=== PATIENT | female | born 1955 | race Caucasian/White ===

== ENCOUNTER 2021-01-13 11:23 | Inpatient (IN) | payer MEDICARE, MEDICAID, SELFPAY ==
[2021-01-13] VITALS (15 sets, daily range): BP systolic 108–215; BP diastolic 71–124; PULSE 72–106; RESP 18–30; TEMP 36.1–36.8; O2SAT 91–98; BMI 30.9
--- NOTE | 2021-01-13 11:41 | DI.RAD.S_ITS ---
PROCEDURE: XR CHEST 2V INDICATIONS: shortness of breath TECHNIQUE: 2 views of the chest were acquired. COMPARISON: [facility], , CHEST 2 VIEW, 02/04/2008, 15:27. FINDINGS: Surgical changes and devices: None. Lungs and pleura: Increased vascularity is present. No gross consolidations. Mediastinum: Mediastinal contours are normal. Heart size is enlarged. Bones and chest wall: No suspicious bony abnormalities. Soft tissues appear unremarkable. IMPRESSION: Increased vascularity and cardiomegaly consistent with edema. Dictated by: Kayla Polo M.D. on 01/13/2021 at 12:09 Approved by: Kayla Polo M.D. on 01/13/2021 at 12:10
--- NOTE | 2021-01-13 12:03 | ED.SOB ---
HPI - SOB/Dyspnea General Chief Complaint: Shortness of Breath/Dyspnea Stated Complaint: face puffy/sob x7 days Time Seen by Provider: 01/13/21 12:01 Source: patient Mode of arrival: Ambulatory Limitations: no limitations History of Present Illness HPI Narrative: 65-year-old woman who lives by herself recently moved to [place] has not established a physician with a history of diabetes for which she is on Lantus and lispro presents with swelling and dyspnea. She states that she has not formally been diagnosed with hypertension, hyperlipidemia asthma COPD or congestive heart failure. She notes that she has had a distant history of IV drug use but has not used IV drugs for an extended period of time. She did smoke ?just a little bit of meth? this morning just to be able to get out of bed. She states that she has been getting more dyspneic and generally not feeling well over the last couple of days. She does not describe specific orthopnea. She denies fevers or chills. No vomiting or diarrhea. No specific palpitations or chest pain. Related Data Home Medications Medication Instructions Recorded Confirmed ALBUTEROL SULFATE (Ventolin / 2 puff INH Q4H PRN #0 02/04/08 Proventil) Allergies Allergy/AdvReac Type Severity Reaction Status Date / Time codeine Allergy Verified 01/13/21 11:42 cortisone Allergy Verified 01/13/21 11:42 hydromorphone [From Dilaudid] Allergy Verified 01/13/21 11:42 Review of Systems Review of Systems Narrative: Remainder of review of systems including constitutional, ENT, cardiovascular, respiratory, GI, , musculoskeletal, skin, neurologic and psychiatric systems reviewed and are unremarkable except as noted in HPI. Patient History Medical History IV drug user Methamphetamine use Surgical History Status post surgery (02/09/10) Social History Smoking Status: Current every day smoker Smoking Status: Current every day smoker alcohol intake frequency: holidays/special occasions only Substance Use Type: methamphetamine Exam Narrative Exam Narrative: General: Acutely ill-appearing woman, Able to give a complete and coherent history. HEENT: Moist mucous membranes, normal sclera with reactive pupils, moderate facial edema with increased puffiness around her eyes, face is somewhat flushed Neck: Significant JVD supple Respiratory: Lungs with bibasilar crackles and scattered wheezes in all lung cantu but she continues to have Full and symmetrical air movement and is able speak in full sentences Cardiac: Tachycardic with Regular rate and rhythm no murmurs no bruits Abdomen: Soft, nontender, good bowel tones, no flank pain Skin: Multiple scars from prior abscesses, 2 small wounds on the right forearm that are healing without evidence of cellulitis Neurologic: Globally weak but Grossly neurologically intact with no obvious asymmetries or abnormalities Extremities: No trauma, well perfused, 2+ bilateral lower extremity edema Psych: Cooperative, nonpressured speech Initial Vital Signs Initial Vital Signs: Vital Signs Temperature 98.2 F 01/13/21 11:35 Pulse Rate 106 H 01/13/21 11:35 Respiratory Rate 25 H 01/13/21 11:35 Blood Pressure 215/124 H 01/13/21 11:35 Pulse Oximetry 98 01/13/21 11:35 Course Orders Ordered: ED Orders 01/13/21 11:38 COVID19 - ADMIT ([employer] swab/PCR) Stat 01/13/21 11:41 XR chest 2V Stat EKG-12 Lead Stat Measure peak expiratory flow ONCE RT Consult Eval and Treat Now 01/13/21 12:15 Blood Culture Stat Complete Blood Count AUTO DIFF Stat Comprehensive Metabolic Panel Stat Lactate (Lactic Acid) Stat NT-proBNP (BNP-Adult 18+) Stat Troponin I Stat 01/13/21 13:01 Urinalysis and Microscopic Stat Urine Drug Screen, Rapid Stat Discontinued Medications Albuterol (Albuterol 2.5 Mg/3 Ml Neb (Adult)) 2.5 mg INH NOW ONE Stop: 01/13/21 13:25 Last Admin: 01/13/21 13:42 Dose: 2.5 mg Documented by: Furosemide (Furosemide 40 Mg/4 Ml Vial) 40 mg IV NOW ONE Stop: 01/13/21 12:18 Last Admin: 01/13/21 12:30 Dose: 40 mg Documented by: CATHERINE Hydromorphone HCl (Hydromorphone 1 Mg Inj) 1 mg IV NOW ONE Stop: 01/13/21 13:28 Last Admin: 01/13/21 13:59 Dose: Not Given Documented by: Ipratropium [place] (Ipratropium 0.5 Mg/2.5 Ml Neb) 0.5 mg INH NOW ONE Stop: 01/13/21 13:25 Last Admin: 01/13/21 13:42 Dose: 0.5 mg Documented by: Methylprednisolone (Methylprednisolone 125 Mg/2 Ml Vial) 125 mg IV NOW ONE Stop: 01/13/21 12:18 Last Admin: 01/13/21 12:28 Dose: 125 mg Documented by: CATHERINE Metoprolol Tartrate (Metoprolol Ir 25 Mg Tablet) 50 mg PO NOW ONE Stop: 01/13/21 12:18 Last Admin: 01/13/21 12:27 Dose: 50 mg Documented by: CATHERINE Vital Signs Vital signs: Vital Signs - 8 hr 01/13/21 11:35 01/13/21 11:39 01/13/21 12:00 Temperature 98.2 F Pulse Rate 106 H 98 H 100 H Respiratory Rate 25 H 28 H 30 H Blood Pressure 215/124 H Pulse Oximetry 98 96 96 01/13/21 12:30 01/13/21 12:38 01/13/21 13:20 Temperature Pulse Rate 94 H 91 H 83 Respiratory Rate 25 H 25 H Blood Pressure 185/93 H 108/71 Pulse Oximetry 98 98 97 01/13/21 13:30 01/13/21 13:31 01/13/21 13:43 Temperature Pulse Rate 78 76 72 Respiratory Rate 24 18 Blood Pressure Pulse Oximetry 96 96 95 MDM - SOB/Dyspnea Medical Records Attestation: I reviewed the patient's medical records. Lab Data Attestation: I reviewed the patient's lab results. Result diagrams: 01/13/21 12:15 01/13/21 12:15 Labs: Lab Results 01/13/21 01/13/21 01/13/21 Range/Units 11:38 12:15 12:15 WBC 5.9 (4.5-11.0) X10^3/uL RBC 4.37 (4.0-5.2) X10^6/uL Hgb 13.1 (12.0-16.0) g/dL Hct 39.0 (36-46) % MCV 89.2 (80-100) fL MCH 30.0 (26-34) PG MCHC 33.6 (30-36) % RDW 14.5 (11.6-14.8) % Plt Count 168 (150-400) X10^3/uL Neut % (Auto) 67.8 (50-75) % Lymph % (Auto) 21.5 L (25-40) % [place] % (Auto) 8.5 (3-14) % Eos % (Auto) 1.8 L (2-4) % Baso % (Auto) 0.4 (0-2) % Neut # (Auto) 4000 (4380-6404) /uL Lymph # (Auto) 1300 (0259-4699) /uL [place] # (Auto) 500 (0-900) /uL Eos # (Auto) 100 (0-450) /uL Baso # (Auto) 0 (0-100) /uL Sodium 137 (137-145) mmol/L Potassium 3.7 (3.4-5.1) mmol/L Chloride 104 (98-107) mmol/L Carbon Dioxide 26 (22-32) mmol/L BUN 19 H (7-17) mg/dL Creatinine 0.77 (0.52-1.04) mg/dL Estimated GFR > 60.0 (>60) mL/min BUN/Creatinine Ratio 24.7 H (6-22) Glucose 169 H (80-110) mg/dL Lactate (0.7-2.1) mmol/L Calcium 9.0 (8.4-10.2) mg/dL Total Bilirubin 0.5 (0.2-1.3) mg/dL AST 61 H (14-36) IU/L ALT 54 H (<35) IU/L Alkaline Phosphatase 138 H (38-126) U/L Troponin I (0.01-0.034) ng/mL NT-Pro-B Natriuret Pep (<125) pg/mL Total Protein 7.8 (6.3-8.2) g/dL Albumin 4.0 (3.5-5.0) g/dL Globulin 3.8 (1.7-4.1) g/dL Albumin/Globulin Ratio 1.1 (1.0-2.8) Urine Color Urine Appearance Urine pH (4.5-8.0) Ur Specific [place] (1.000-1.035) Urine Protein (Negative) Urine Glucose (UA) (Negative) g/dL Urine Ketones (NEGATIVE) Urine Occult Blood (Negative) Urine Nitrate (Negative) Urine Bilirubin (NEGATIVE) Urine Urobilinogen (0.2) E.U./dL Ur Leukocyte Esterase (NEGATIVE) Urine RBC (0-5/HPF) Urine WBC (0-5/HPF) Ur Squamous Epith Cells (0-5/HPF) Urine Bacteria (None) Ur Culture Indicated? U Opiates 300ng/mL cut (Negative) Ur Oxycodone Screen (Negative) Urine Methadone Screen (Negative) Ur Barbiturates Screen (Negative) U Tricyclic Antidepress (Negative) Ur Phencyclidine Scrn (Negative) Ur Amphetamines Screen (Negative) U Methamphetamines Scrn (Negative) Ur MDMA Scrn (Ecstasy) (Negative) U Benzodiazepines Scrn (Negative) Urine Cocaine Screen (Negative) U Marijuana (THC) Screen (Negative) SARS-CoV-2 (PCR) Negative (Negative) 01/13/21 01/13/21 01/13/21 Range/Units 12:15 12:15 12:15 WBC (4.5-11.0) X10^3/uL RBC (4.0-5.2) X10^6/uL Hgb (12.0-16.0) g/dL Hct (36-46) % MCV (80-100) fL MCH (26-34) PG MCHC (30-36) % RDW (11.6-14.8) % Plt Count (150-400) X10^3/uL Neut % (Auto) (50-75) % Lymph % (Auto) (25-40) % [place] % (Auto) (3-14) % Eos % (Auto) (2-4) % Baso % (Auto) (0-2) % Neut # (Auto) (5375-4762) /uL Lymph # (Auto) (0162-2158) /uL [place] # (Auto) (0-900) /uL Eos # (Auto) (0-450) /uL Baso # (Auto) (0-100) /uL Sodium (137-145) mmol/L Potassium (3.4-5.1) mmol/L Chloride (98-107) mmol/L Carbon Dioxide (22-32) mmol/L BUN (7-17) mg/dL Creatinine (0.52-1.04) mg/dL Estimated GFR (>60) mL/min BUN/Creatinine Ratio (6-22) Glucose (80-110) mg/dL Lactate 1.3 (0.7-2.1) mmol/L Calcium (8.4-10.2) mg/dL Total Bilirubin (0.2-1.3) mg/dL AST (14-36) IU/L ALT (<35) IU/L Alkaline Phosphatase (38-126) U/L Troponin I 0.035 H (0.01-0.034) ng/mL NT-Pro-B Natriuret Pep 9300 H (<125) pg/mL Total Protein (6.3-8.2) g/dL Albumin (3.5-5.0) g/dL Globulin (1.7-4.1) g/dL Albumin/Globulin Ratio (1.0-2.8) Urine Color Urine Appearance Urine pH (4.5-8.0) Ur Specific [place] (1.000-1.035) Urine Protein (Negative) Urine Glucose (UA) (Negative) g/dL Urine Ketones (NEGATIVE) Urine Occult Blood (Negative) Urine Nitrate (Negative) Urine Bilirubin (NEGATIVE) Urine Urobilinogen (0.2) E.U./dL Ur Leukocyte Esterase (NEGATIVE) Urine RBC (0-5/HPF) Urine WBC (0-5/HPF) Ur Squamous Epith Cells (0-5/HPF) Urine Bacteria (None) Ur Culture Indicated? U Opiates 300ng/mL cut (Negative) Ur Oxycodone Screen (Negative) Urine Methadone Screen (Negative) Ur Barbiturates Screen (Negative) U Tricyclic Antidepress (Negative) Ur Phencyclidine Scrn (Negative) Ur Amphetamines Screen (Negative) U Methamphetamines Scrn (Negative) Ur MDMA Scrn (Ecstasy) (Negative) U Benzodiazepines Scrn (Negative) Urine Cocaine Screen (Negative) U Marijuana (THC) Screen (Negative) SARS-CoV-2 (PCR) (Negative) 01/13/21 01/13/21 Range/Units 13:01 13:01 WBC (4.5-11.0) X10^3/uL RBC (4.0-5.2) X10^6/uL Hgb (12.0-16.0) g/dL Hct (36-46) % MCV (80-100) fL MCH (26-34) PG MCHC (30-36) % RDW (11.6-14.8) % Plt Count (150-400) X10^3/uL Neut % (Auto) (50-75) % Lymph % (Auto) (25-40) % [place] % (Auto) (3-14) % Eos % (Auto) (2-4) % Baso % (Auto) (0-2) % Neut # (Auto) (6035-2580) /uL Lymph # (Auto) (2391-0496) /uL [place] # (Auto) (0-900) /uL Eos # (Auto) (0-450) /uL Baso # (Auto) (0-100) /uL Sodium (137-145) mmol/L Potassium (3.4-5.1) mmol/L Chloride (98-107) mmol/L Carbon Dioxide (22-32) mmol/L BUN (7-17) mg/dL Creatinine (0.52-1.04) mg/dL Estimated GFR (>60) mL/min BUN/Creatinine Ratio (6-22) Glucose (80-110) mg/dL Lactate (0.7-2.1) mmol/L Calcium (8.4-10.2) mg/dL Total Bilirubin (0.2-1.3) mg/dL AST (14-36) IU/L ALT (<35) IU/L Alkaline Phosphatase (38-126) U/L Troponin I (0.01-0.034) ng/mL NT-Pro-B Natriuret Pep (<125) pg/mL Total Protein (6.3-8.2) g/dL Albumin (3.5-5.0) g/dL Globulin (1.7-4.1) g/dL Albumin/Globulin Ratio (1.0-2.8) Urine Color Yellow Urine Appearance Clear Urine pH 6.0 (4.5-8.0) Ur Specific [place] 1.015 (1.000-1.035) Urine Protein 1+ H (Negative) Urine Glucose (UA) Negative (Negative) g/dL Urine Ketones Negative (NEGATIVE) Urine Occult Blood Negative (Negative) Urine Nitrate Negative (Negative) Urine Bilirubin Negative (NEGATIVE) Urine Urobilinogen 0.2 (0.2) E.U./dL Ur Leukocyte Esterase Trace H (NEGATIVE) Urine RBC None seen (0-5/HPF) Urine WBC 1-5/hpf (0-5/HPF) Ur Squamous Epith Cells 5-10 /hpf H (0-5/HPF) Urine Bacteria None seen (None) Ur Culture Indicated? Cult not indicated U Opiates 300ng/mL cut Negative (Negative) Ur Oxycodone Screen Negative (Negative) Urine Methadone Screen Negative (Negative) Ur Barbiturates Screen Negative (Negative) U Tricyclic Antidepress Negative (Negative) Ur Phencyclidine Scrn Negative (Negative) Ur Amphetamines Screen Positive H (Negative) U Methamphetamines Scrn Negative (Negative) Ur MDMA Scrn (Ecstasy) Negative (Negative) U Benzodiazepines Scrn Negative (Negative) Urine Cocaine Screen Negative (Negative) U Marijuana (THC) Screen Negative (Negative) SARS-CoV-2 (PCR) (Negative) Urine Dip Bedside Urine Glucose Negative Bedside Urine Bilirubin - Negative Bedside Urine Ketone - Negative Urine Specific [place] 1.020 Bedside Urine Occult Blood - Negative Bedside Urine pH 6.0 Bedside Urine Protein + 30 Bedside Urine Urobilinogen - Negative Bedside Urine Nitrite - Negative Bedside Urine Leukocytes - Negative Esterase Imaging Data Chest x-ray: Attestation: I personally reviewed and interpreted this imaging study as follows: Radiologist's Impression: FINDINGS: Surgical changes and devices: None. Lungs and pleura: Increased vascularity is present. No gross consolidations. Mediastinum: Mediastinal contours are normal. Heart size is enlarged. Bones and chest wall: No suspicious bony abnormalities. Soft tissues appear unremarkable. IMPRESSION: Increased vascularity and cardiomegaly consistent with edema. Dictated by: Kayla Polo M.D. on 01/13/2021 at 12:09 ECG Data Attestation: I personally reviewed and interpreted this ECG as follows: Pacemaker function: pacemaker associated dysrhythmia MDM Narrative Medical decision making narrative: 65-year-old woman complains of increasing dyspnea. History of IV drug use and methamphetamine use. 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 Chest x-ray confirms the heart failure. There does not appear to be any infectious etiology. She does have scattered wheezes well as bibasilar crackles and significant JVD. Significantly elevated blood pressure on arrival and does note that she has methamphetamine just prior to arrival to be able to get out of bed. She is given IV Lasix, oral metoprolol blood pressure and heart rate do come down nicely. She is given IV Solu-Medrol for wheezes as well as a nebulizer after COVID study returns negative. Wheezing is somewhat improved. Initial pulmonary function test showed 150 cc with poor effort(she should be at least in the 250 range). Troponins are currently pending. 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 Discharge Plan Departure Patient Disposition: Admitted As Inpatient Clinical Impression: Methamphetamine use, Acute exacerbation of chronic obstructive airways disease Congestive heart failure Qualifiers: Heart failure type: unspecified Heart failure chronicity: acute Qualified Code(s): I50.9 - Heart failure, unspecified Admit Date/Time: 01/13/21 14:21 Admit Provider: Michael Diaz
[2021-01-13 12:27] LABS: Add Manual Diff / Slide Review NO; Basophils Absolute Auto 0 /uL (0-100); Basophils Percent Auto 0.4 % (0-2); Eosinophils Absolute Auto 100 /uL (0-450); Eosinophils Percent Auto 1.8 % (2-4); Hemoglobin 13.1 g/dL (12.0-16.0); Lymphocytes Absolute Auto 1300 /uL (1100-4500); Lymphocytes Percent Auto 21.5 % (25-40); Mean Corpuscular HGB Conc 33.6 % (30-36); Mean Corpuscular Volume 89.2 fL (80-100); Monocytes Absolute Auto 500 /uL (0-900); Monocytes Percent Auto 8.5 % (3-14); Neutrophils Absolute Auto 4000 /uL (1500-7000); Neutrophils Percent Auto 67.8 % (50-75); Platelet Count 168 X10^3/uL (150-400); Red Blood Cell Count 4.37 X10^6/uL (4.0-5.2); Red Cell Distribution Width 14.5 % (11.6-14.8); White Blood Cell Count 5.9 X10^3/uL (4.5-11.0)
[2021-01-13] MEDS: METOPROLOL IR 25 MG TABLET 50 MG PO (12:27)
[2021-01-13] MEDS: methylPREDNISolone 125 MG/2 ML VIAL IV (12:28)
[2021-01-13] MEDS: FUROSEMIDE 40 MG/4 ML VIAL IV ×2 (12:30→18:58)
[2021-01-13 12:39] LABS: Lactate (Lactic Acid) 1.3 mmol/L (0.7-2.1)
[2021-01-13 12:40] LABS: Alanine Aminotransferase 54 IU/L (<35); Albumin Globulin Ratio 1.1 (1.0-2.8); Alkaline Phosphatase 138 U/L (38-126); Aspartate Aminotransferase 61 IU/L (14-36); BUN Creatinine Ratio 24.7 (6-22); Bilirubin Total 0.5 mg/dL (0.2-1.3); Blood Urea Nitrogen 19 mg/dL (7-17); Carbon Dioxide 26 mmol/L (22-32); Chloride 104 mmol/L (98-107); Estimated Glomerular Filt Rate > 60.0 mL/min (>60); Globulin 3.8 g/dL (1.7-4.1); Glucose 169 mg/dL (80-110); HEMOLYSIS < 15 (0-50); Potassium 3.7 mmol/L (3.4-5.1); Sodium 137 mmol/L (137-145); Total Protein 7.8 g/dL (6.3-8.2)
[2021-01-13 13:07] LABS: NT-proBNP (BNP-Adult 18+) 9300 pg/mL (<125)
[2021-01-13 13:12] LABS: Bacteria Urine None Seen; RBC Urine None Seen (0-5/HPF)
[2021-01-13 13:26] LABS: Appearance Urine UA CLEAR; Bilirubin Urine UA NEGATIVE (NEGATIVE); Color Urine UA YELLOW; Glucose Urine UA NEGATIVE (Negative); Ketones Urine UA NEGATIVE (NEGATIVE); Leukocyte Esterase Urine UA TRACE (NEGATIVE); Nitrite Urine UA NEGATIVE (Negative); Occult Blood Urine UA NEGATIVE (Negative); Protein Urine UA 1+ (Negative); Specific Gravity Urine UA 1.015 (1.000-1.035); Urobilinogen Urine UA 0.2 E.U./dL (0.2)
[2021-01-13 13:29] LABS: Ur Creatinine Normal (Normal); Ur Specific Gravity Normal (Normal); Urine Tetrahydrocannabinol Negative (Negative); Urine pH Normal (Normal)
[2021-01-13 13:30] LABS: UR Morphine/Opiate cutoff 300 Negative (Negative); Urine Amphetamines Positive (Negative); Urine Barbiturates Negative (Negative); Urine Benzodiazepines Negative (Negative); Urine Cocaine Negative (Negative); Urine MDMA Negative (Negative); Urine Methadone Negative (Negative); Urine Methamphetamines Negative (Negative); Urine Oxycodone Negative (Negative); Urine Phencyclidine Negative (Negative); Urine Tricyclic Antidepressant Negative (Negative)
[2021-01-13 13:37] LABS: Culture Indicated Urine Cult Not Indicated; Squamous Epithelial Cell Urine 5-10 /HPF (0-5/HPF); WBC Urine 1-5/HPF (0-5/HPF)
[2021-01-13] MEDS: IPRATROPIUM 0.5 MG/2.5 ML NEB INH (13:42)
[2021-01-13] MEDS: ALBUTEROL 2.5 MG/3 ML NEB (ADULT) INH (13:42)
--- NOTE | 2021-01-13 13:50 | RT ---
pt zari Neb Tx well, no distress noted and on room air. Peak Flow 150/ 180 Not excellent effort noted.
[2021-01-13 14:04] LABS: Troponin I 0.035 ng/mL (0.01-0.034)
[2021-01-13 14:24] LABS: COVID19 - ADMIT (NP swab/PCR) Negative (Negative)
--- NOTE | 2021-01-13 16:14 | P.HP_ITS ---
History of Present Illness History of Present Illness Date Patient Seen: 01/13/21 Time Patient Seen: 16:14 Chief complaint: face puffy/sob x7 days Narrative: Chrissy Nieves is a 65 year old female with a past medical history of diabetes, COPD/asthma, active smoker and active methamphetamine user who presented with worsening shortness of breath over the past month to the emergency room. Patient states that over the past month she has had increasing shortness of breath. Initially this started with dyspnea on exertion but has now progressed to dyspnea at rest rapidly over the past week, she is only able to take a a few steps before getting short of breath. She denies any chest pain, palpitations, fevers, chills. She denies any diaphoresis, nausea, vomi ting, abdominal pain, left arm or jaw pain. She does have a cough that is worse at night but denies overt orthopnea or PND. She does complain of increasing facial swelling. She denies any lower extremity edema that she has noticed and she denies any early satiety or weight gain. She has been taking her home albuterol which occasionally helps with her symptoms. In the emergency room, the patient was markedly hypertensive to 215/124, which is improved to 157/96 after she was given oral metoprolol. She was not hypoxic on room air but was mildly tachypneic in the low 30s. She was initially t achycardic but her heart rate has improved with oral metoprolol. She was also given methylprednisone in the emergency room along with albuterol and 40 mg of furosemide. EKG shows sinus rhythm with occasional PVC. Chest x-ray shows cardiomegaly and vascular congestion. Initial laboratory evaluation revealed an unremarkable CBC, chemistries revealed an elevated glucose at 169, mild AST and ALT elevations at 61 and 54 respectively. Troponin was borderline elevated at 0.031 increased slightly to 0.035. ProBNP was elevated at 9300. Urinalysis was slightly contaminated but no evidence of active infection. Urine drug screen was positive for methamphetamines. COVID-19 testing was negative. Patient was admitted for further management of presumed acute heart failure secondary to methamphetamine use. Patient History Medical History COPD (chronic obstructive pulmonary disease) Diabetes IV drug user Methamphetamine use Surgical History Status post surgery (02/09/10) Family & Social History Family History Mother Diabetes mellitus Father Congestive heart failure Safety & Behavioral: Feels Safe in Current Yes Environment Been Physically Hurt or No Threatened By a Person Tobacco & Substance use: Smoking Status Current every day smoker alcohol intake frequency holiday/special occasion Substance Use Type methamphetamine Meds Home Medications and Allergies Home Medications Medication Instructions Recorded Confirmed Type insulin glargine [Lantus U-100 30 unit SUBCUT QPM 01/13/21 01/13/21 History Insulin] insulin lispro 8 unit SUBCUT TID 01/13/21 01/13/21 History Allergies Allergy/AdvReac Type Severity Reaction Status Date / Time codeine Allergy Verified 01/13/21 14:34 cortisone Allergy Verified 01/13/21 14:34 hydromorphone [From Dilaudid] Allergy Verified 01/13/21 14:34 Review of Systems Review of Systems Narrative: All other systems reviewed with the patient and are negative unless otherwise stated. Exam Vital Signs (past 8 hours): - 01/13/21 11:35 01/13/21 11:39 01/13/21 12:00 Temperature 98.2 F Pulse Rate 106 H 98 H 100 H Respiratory Rate 25 H 28 H 30 H Blood Pressure 215/124 H Pulse Oximetry 98 96 96 01/13/21 12:30 01/13/21 12:38 01/13/21 13:20 Temperature Pulse Rate 94 H 91 H 83 Respiratory Rate 25 H 25 H Blood Pressure 185/93 H 108/71 Pulse Oximetry 98 98 97 01/13/21 13:30 01/13/21 13:31 01/13/21 13:43 Temperature Pulse Rate 78 76 72 Respiratory Rate 24 18 Blood Pressure Pulse Oximetry 96 96 95 01/13/21 14:00 01/13/21 14:30 01/13/21 15:00 Temperature Pulse Rate 72 73 74 Respiratory Rate 26 H 30 H 29 H Blood Pressure 182/89 H 168/123 H 157/96 H Pulse Oximetry 94 97 94 Oxygen Delivery Method Room Air Narrative Exam Narrative: GENERAL APPEARANCE: Well developed, well nourished, in no acute distress but mildly anxious and fidgety. SKIN: Inspection of the skin reveals scattered ecchymosis and scarring bilaterally in her extremities. HEENT: Normocephalic atraumatic, extraocular muscles are intact, oropharynx is clear and mucous membranes are moist, neck is supple without adenopathy NECK: Supple and symmetric. There was no thyroid enlargement, and no tenderness, or masses were felt. CHEST: Normal AP diameter and normal contour without any kyphoscoliosis. LUNGS: Auscultation of the lungs revealed diminshes breath sounds bilateral lung bases, but no wheezing or obvious crackles. CARDIOVASCULAR: There was a regular rate and rhythm without any murmurs, gallops, rubs. Peripheral pulses were 2+ and symmetric. ABDOMEN: Soft and nontender with normal bowel sounds. No ascites was noted. MUSCULOSKELETAL: There was no tenderness or effusions noted. Muscle strength and tone were normal. EXTREMITIES: No cyanosis, clubbing. Trace pedal edema bilaterally. NEUROLOGIC: Alert and oriented x 3. Normal affect although slightly anxious as noted above. Strength is +5/5 in the Upper Extremities and Lower Extremities Bilaterally. Sensation to touch was normal. Objective ECG Impression: Sinus rhythm with occasional premature ventricular complexes no prior tracings Imaging Chest x-ray: Radiologist's impression: PROCEDURE: XR CHEST 2V INDICATIONS: shortness of breath TECHNIQUE: 2 views of the chest were acquired. COMPARISON: [facility], , CHEST 2 VIEW, 02/04/2008, 15:27. FINDINGS: Surgical changes and devices: None. Lungs and pleura: Increased vascularity is present. No gross consolidations. Mediastinum: Mediastinal contours are normal. Heart size is enlarged. Bones and chest wall: No suspicious bony abnormalities. Soft tissues appear unremarkable. IMPRESSION: Increased vascularity and cardiomegaly consistent with edema. Labs Result Diagrams: 01/13/21 12:15 01/13/21 12:15 Labs: Laboratory Results - last 24 hr 01/13/21 01/13/21 01/13/21 11:38 12:15 12:15 WBC 5.9 RBC 4.37 Hgb 13.1 Hct 39.0 MCV 89.2 MCH 30.0 MCHC 33.6 RDW 14.5 Plt Count 168 Neut % (Auto) 67.8 Lymph % (Auto) 21.5 L [place] % (Auto) 8.5 Eos % (Auto) 1.8 L Baso % (Auto) 0.4 Neut # (Auto) 4000 Lymph # (Auto) 1300 [place] # (Auto) 500 Eos # (Auto) 100 Baso # (Auto) 0 Sodium 137 Potassium 3.7 Chloride 104 Carbon Dioxide 26 BUN 19 H Creatinine 0.77 Estimated GFR > 60.0 BUN/Creatinine Ratio 24.7 H Glucose 169 H Lactate Calcium 9.0 Total Bilirubin 0.5 AST 61 H ALT 54 H Alkaline Phosphatase 138 H Troponin I NT-Pro-B Natriuret Pep Total Protein 7.8 Albumin 4.0 Globulin 3.8 Albumin/Globulin Ratio 1.1 Urine Color Urine Appearance Urine pH Ur Specific [place] Urine Protein Urine Glucose (UA) Urine Ketones Urine Occult Blood Urine Nitrate Urine Bilirubin Urine Urobilinogen Ur Leukocyte Esterase Urine RBC Urine WBC Ur Squamous Epith Cells Urine Bacteria Ur Culture Indicated? U Opiates 300ng/mL cut Ur Oxycodone Screen Urine Methadone Screen Ur Barbiturates Screen U Tricyclic Antidepress Ur Phencyclidine Scrn Ur Amphetamines Screen U Methamphetamines Scrn Ur MDMA Scrn (Ecstasy) U Benzodiazepines Scrn Urine Cocaine Screen U Marijuana (THC) Screen SARS-CoV-2 (PCR) Negative 01/13/21 01/13/21 01/13/21 12:15 12:15 12:15 WBC RBC Hgb Hct MCV MCH MCHC RDW Plt Count Neut % (Auto) Lymph % (Auto) [place] % (Auto) Eos % (Auto) Baso % (Auto) Neut # (Auto) Lymph # (Auto) [place] # (Auto) Eos # (Auto) Baso # (Auto) Sodium Potassium Chloride Carbon Dioxide BUN Creatinine Estimated GFR BUN/Creatinine Ratio Glucose Lactate 1.3 Calcium Total Bilirubin AST ALT Alkaline Phosphatase Troponin I 0.035 H NT-Pro-B Natriuret Pep 9300 H Total Protein Albumin Globulin Albumin/Globulin Ratio Urine Color Urine Appearance Urine pH Ur Specific [place] Urine Protein Urine Glucose (UA) Urine Ketones Urine Occult Blood Urine Nitrate Urine Bilirubin Urine Urobilinogen Ur Leukocyte Esterase Urine RBC Urine WBC Ur Squamous Epith Cells Urine Bacteria Ur Culture Indicated? U Opiates 300ng/mL cut Ur Oxycodone Screen Urine Methadone Screen Ur Barbiturates Screen U Tricyclic Antidepress Ur Phencyclidine Scrn Ur Amphetamines Screen U Methamphetamines Scrn Ur MDMA Scrn (Ecstasy) U Benzodiazepines Scrn Urine Cocaine Screen U Marijuana (THC) Screen SARS-CoV-2 (PCR) 01/13/21 01/13/21 13:01 13:01 WBC RBC Hgb Hct MCV MCH MCHC RDW Plt Count Neut % (Auto) Lymph % (Auto) [place] % (Auto) Eos % (Auto) Baso % (Auto) Neut # (Auto) Lymph # (Auto) [place] # (Auto) Eos # (Auto) Baso # (Auto) Sodium Potassium Chloride Carbon Dioxide BUN Creatinine Estimated GFR BUN/Creatinine Ratio Glucose Lactate Calcium Total Bilirubin AST ALT Alkaline Phosphatase Troponin I NT-Pro-B Natriuret Pep Total Protein Albumin Globulin Albumin/Globulin Ratio Urine Color Yellow Urine Appearance Clear Urine pH 6.0 Ur Specific [place] 1.015 Urine Protein 1+ H Urine Glucose (UA) Negative Urine Ketones Negative Urine Occult Blood Negative Urine Nitrate Negative Urine Bilirubin Negative Urine Urobilinogen 0.2 Ur Leukocyte Esterase Trace H Urine RBC None seen Urine WBC 1-5/hpf Ur Squamous Epith Cells 5-10 /hpf H Urine Bacteria None seen Ur Culture Indicated? Cult not indicated U Opiates 300ng/mL cut Negative Ur Oxycodone Screen Negative Urine Methadone Screen Negative Ur Barbiturates Screen Negative U Tricyclic Antidepress Negative Ur Phencyclidine Scrn Negative Ur Amphetamines Screen Positive H U Methamphetamines Scrn Negative Ur MDMA Scrn (Ecstasy) Negative U Benzodiazepines Scrn Negative Urine Cocaine Screen Negative U Marijuana (THC) Screen Negative SARS-CoV-2 (PCR) Assessment & Plan Assessment & Plan narrative: Chrissy Nieves is a 65 year old female with a past medical history of diabetes, COPD/asthma, active smoker and active methamphetamine user who presented with worsening shortness of breath over the p ast month to the emergency room. Admitted for further management of presumed acute heart failure secondary to methamphetamine use. 1. Presumed acute heart failure, unknown EF, present on admission - patient with no known prior heart history, presented with 1 month of progressive dyspnea on exertion. - CXR with cardiomegaly and vascular congestion, pro-bnp 9300. Symptoms improved with 40 mg of IV lasix in the ER, will continue 40 mg IV BID. 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 Patient was counseled on cessation. She was also counseled on tobacco cessation as well. -suspect her elevated troponins in the setting of volume overload, will continue to follow until downtrending. She denies chest pain and EKG shows some nonspecific T-wave inversions but no acute ST segment abnormalities. -have ordered echocardiogram. Patient was given oral metoprolol for hypertension the emergency room with success. For her HTN will continue lasix therapy and start lisinopril tomorrow AM unless hypertensive overnight. Will try and hold off on beta candelario therapy until more adequately diuresed. 2. polysubstance abuse, with methamphetamine use and tobacco use. 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 She is accepting of this and interested in quitting. 3. Diabetes, type 2, control unknown, present on admission - continue patients home lantus 30, humalog 8 U TID AC, and sliding scale. Will check an A1c. 4. COPD/asthma - patient was given steroids and albuterol in the ER. Suspect dyspnea more likely related to heart failure at this time. Do not believe this to be an acute exacerbation. Will hold further steroids at this time. Continue albuterol prn, RT eval and treat ordered. 5. Elevated troponin, acute, present on admission - suspect elevated in the setting of fluid overload and heart failure. EKG with no evidence of acute ischemia and no chest pain currently. Will continue to follow until downtrending. Code: Full, surrogate decision maker she states is her son (not sure and this has not been formally discussed, but states children would be the only available family). DVT: HSQ BID Dispo: admitted under inpatient status as her stay is expected to exceed two midnights. Quality MIPS - Admit I confirm the patient?s Advance Care Plan is present, Code status is documented, Surrogate decision maker is in patient?s record [If Yes, STOP here]: Yes
--- NOTE | 2021-01-13 16:42 | DI.ECHO.S_ITS ---
[facility] +---------+ : : [address] [place] [address] : : : : [phone] : : : : Phone: [phone]+ Echocardiogram Report + + :Name: VINAYAK HERNANDEZ Study Date: 01/14/2021 Height: 63 in : :[facility] ReadingLocation: Weight: 180 lb : : Gender: Female BSA: 1.8 m2 : :: 1955 Age: 65 yrs BP: 168/123 mmHg: :Reason For Study: SHORTNESS OF BREATH, CARDIOMYOPATHY : :Ordering Physician: NICOLE, : :CASANDRA TOBIAS Performed By: Megan Lopez : :Referring: CASANDRA RIVERA : + + Interpretation Summary The left ventricle is normal in size. The ejection fraction is estimated to be 45-50%. There is a hypokinesis of basal to mid inferior wall as well as basal to mid inferior septum. Diastolic parameters suggest a pseudonormalization pattern, consistent with probable elevated filling pressures. The right ventricle is grossly normal size. Right ventricular systolic function is at the lower limits of normal. Both atria are severely dilated. There is moderate tricuspid regurgitation. The right ventricular systolic pressure is estimated to be at least 51 mmHg based on an estimated right atrial pressure of 15 mm Hg. There is moderate pulmonary hypertension. BP: 168/123 mmHg Procedure: A two-dimensional transthoracic echocardiogram with color flow and Doppler was performed. The study quality was technically adequate. There is no prior echocardiogram noted for this patient. The patient was in sinus rhythm with heart rates between 85-90 bpm during the exam. Left Ventricle: The left ventricle is normal in size. There is mild concentric left ventricular hypertrophy. There is no thrombus. The ejection fraction is estimated to be 45-50%. There is a hypokinesis of basal to mid inferior wall as well as basal to mid inferior septum. Diastolic parameters suggest a pseudonormalization pattern, consistent with probable elevated filling pressures. Right Ventricle: The right ventricle is grossly normal size. Right ventricular systolic function is at the lower limits of normal. Atria: The left atrium is severely dilated. Both atria are severely dilated. The right atrium is severely dilated. There is no Doppler evidence for an interatrial shunt. Mitral Valve: The mitral valve leaflets appear borderline thickened, but open well. There is mild mitral annular calcification. There is mild mitral regurgitation. Aortic Valve: The aortic valve is trileaflet. The aortic valve opens well. There is no aortic valve stenosis. No aortic regurgitation is present. Tricuspid Valve: The tricuspid valve is not well visualized, but is grossly normal. There is moderate tricuspid regurgitation. The right ventricular systolic pressure is estimated to be at least 51 mmHg based on an estimated right atrial pressure of 15 mm Hg. There is moderate pulmonary hypertension. Pulmonic Valve: The pulmonic valve is not well visualized. There is no pulmonic valvular regurgitation. Great Vessels: The aortic root is normal size. The dimensions of the ascending aorta are normal. The IVC is dilated (diameter is greater than 2.1 cm) and it collapses less than 50% with a sniff. This suggests a high right atrial pressure of 15 mm Hg. Pericardium/ Pleura There is no pericardial effusion. There is no pleural effusion. MMode/2D Measurements & Calculations LVIDd: 5.1 cm LVOT diam: 2.0 cm LVIDs: 3.7 cm Ao root diam: 3.1 cm FS: 28.0 % asc Aorta Diam: 3.3 cm EPSS: 1.5 cm IVSd: 1.1 cm LVPWd: 1.1 cm LV [place]. diameter/BSA (cm/m^2): 2.7 LV sys. diameter/BSA (cm/m^2): 2.0 LA A2 area: 26.7 cm2 RA long axis: 5.8 cm LA A4 area: 27.1 cm2 RA area: 25.5 cm2 LA length (vol): 6.4 cm RA vol: 94.9 ml LA vol: 96.6 ml RA : 51.3 ml/m2 LA vol index: 52.3 ml/m2 IVC diam: 2.8 cm RVD1 (basal): 3.2 cm TAPSE: 1.8 cm Doppler Measurements & Calculations Ao V2 max: 124.7 cm/sec LVOT Max Jeremy: 76.7 cm/sec Ao V2 mean: 87.1 cm/sec LV V1 max P.4 mmHg Ao max P.2 mmHg LV V1 VTI: 15.1 cm Ao mean P.4 mmHg SERA(I,D): 2.3 cm2 Ao V2 VTI: 21.2 cm SERA(V,D): 2.0 cm2 sev ratio: 0.71 SERA indexed to BSA (cm^2/m^2): 1.2 MV E max jeremy: 103.7 cm/sec TR max jeremy: 300.1 cm/sec MV A max jeremy: 86.5 cm/sec TR max P.0 mmHg MV E/A: 1.2 PA V2 max: 94.4 cm/sec Med Peak E' Jeremy: 3.9 cm/sec PA V2 mean: 70.1 cm/sec E/E' med: 26.4 PA mean P.2 mmHg Lat Peak E' Jeremy: 6.2 cm/sec PA pr(Accel): 36.2 mmHg E/E' lat: 16.8 E/e' average: 21.6 MV dec time: 0.15 sec SV(LVOT): 48.4 ml Reading Physician:11:57 AM
[2021-01-13] MEDS: INSULIN ASPART 100 UNIT/ML INSULN PEN SUBCUT ×2 (17:29→21:16)
[2021-01-13] MEDS: INSULIN ASPART 100 UNIT/ML INSULN PEN 8 UNIT SUBCUT (17:29)
[2021-01-13] MEDS: BENZOCAINE/MENTHOL 1 LOZ PKT 1 EACH PO (20:26)
[2021-01-13] MEDS: HEPARIN 5,000 UNIT/ML VIAL 5000 UNIT SUBCUT (21:14)
[2021-01-13] MEDS: INSULIN GLARGINE 100 UNIT/ML 3ML PEN 30 UNIT SUBCUT (21:17)
--- NOTE | 2021-01-13 23:45 | PC.NURSE ---
summary- Pt arrived to room 216 from ED via bed. A/O x4, SOB with exertion, pt reports tiny bit SOB at rest, 94% RA, LS clear post coughing, cough intermittent and productive. Denies chest pain, nausea, or dizziness. Pt Hx IV meth user, Smokes meth currently and used this morning 01/13/21. BP 148/113 provider aware. Tele placed 1600 [id number]. Rt wrist SL Lasix admin 1900 with 25mL ns flush. Lt/Rt FA's scared from abscesses of IV drug use, RFA with 2 1cm healing scabs, diagonal scar to ABD from cholecystectomy. BG @ 8115-296 - 8units scheduled and 3 units coverage, 11 total units admin, 1999- , 5units insulin with 30 units scheduled lantus admin. Provided pt with snacks and fluids, call light in reach.
[2021-01-14] VITALS (15 sets, daily range): BP systolic 134–162; BP diastolic 71–100; PULSE 79–98; RESP 16–22; TEMP 36.3–37.4; O2SAT 92–98
[2021-01-14] MEDS: BENZOCAINE/MENTHOL 1 LOZ PKT 1 EACH PO (02:32)
[2021-01-14] MEDS: FUROSEMIDE 40 MG/4 ML VIAL IV ×2 (06:17→17:19)
[2021-01-14 06:32] LABS: Alanine Aminotransferase 53 IU/L (<35); Albumin Globulin Ratio 1.1 (1.0-2.8); Alkaline Phosphatase 149 U/L (38-126); Aspartate Aminotransferase 57 IU/L (14-36); BUN Creatinine Ratio 34.9 (6-22); Bilirubin Total 0.4 mg/dL (0.2-1.3); Bilirubin Unconjugated 0.4 mg/dL (0.0-1.1); Blood Urea Nitrogen 29 mg/dL (7-17); Carbon Dioxide 26 mmol/L (22-32); Chloride 101 mmol/L (98-107); Cholesterol 159 mg/dL (140-199); Estimated Glomerular Filt Rate > 60.0 mL/min (>60); Globulin 3.8 g/dL (1.7-4.1); Glucose 179 mg/dL (80-110); HDL Cholesterol 59 mg/dL (40-60); HEMOLYSIS 34 (0-50); LDL Cholesterol Calculated 70 mg/dL (<100); Magnesium 1.6 mg/dL (1.6-2.3); Potassium 3.8 mmol/L (3.4-5.1); Sodium 137 mmol/L (137-145); Total Protein 7.8 g/dL (6.3-8.2); Triglycerides 149 mg/dL (35-150)
[2021-01-14 06:37] LABS: Add Manual Diff / Slide Review NO; Basophils Absolute Auto 100 /uL (0-100); Basophils Percent Auto 1.1 % (0-2); Eosinophils Absolute Auto 0 /uL (0-450); Eosinophils Percent Auto 0.1 % (2-4); Hematocrit 38.4 % (36-46); Hemoglobin 12.8 g/dL (12.0-16.0); Lymphocytes Absolute Auto 1400 /uL (1100-4500); Lymphocytes Percent Auto 12.5 % (25-40); Mean Corpuscular HGB Conc 33.4 % (30-36); Mean Corpuscular Hemoglobin 29.8 PG (26-34); Mean Corpuscular Volume 89.2 fL (80-100); Monocytes Absolute Auto 800 /uL (0-900); Monocytes Percent Auto 6.9 % (3-14); Neutrophils Absolute Auto 8900 /uL (1500-7000); Neutrophils Percent Auto 79.4 % (50-75); Platelet Count 177 X10^3/uL (150-400); Red Blood Cell Count 4.31 X10^6/uL (4.0-5.2); Red Cell Distribution Width 14.4 % (11.6-14.8); White Blood Cell Count 11.2 X10^3/uL (4.5-11.0)
[2021-01-14 06:38] LABS: Hemoglobin A1C% w Est Avg Glu 7.1 % (4.0-6.0)
[2021-01-14 07:01] LABS: TSH w/ Reflex to FT4 1.19 uIU/mL (0.47-4.68)
[2021-01-14] MEDS: ALBUTEROL 2.5 MG/3 ML NEB (ADULT) INH ×2 (07:58→16:14)
[2021-01-14] MEDS: HEPARIN 5,000 UNIT/ML VIAL 5000 UNIT SUBCUT ×2 (08:21→21:51)
[2021-01-14] MEDS: lisinopriL 10 MG TABLET PO (08:21)
[2021-01-14] MEDS: INSULIN ASPART 100 UNIT/ML INSULN PEN SUBCUT (08:22)
[2021-01-14] MEDS: INSULIN ASPART 100 UNIT/ML INSULN PEN 8 UNIT SUBCUT ×3 (08:22→17:19)
[2021-01-14] MEDS: SODIUM CHLORIDE 0.9% FLUSH 10 ML IV ×2 (08:29→21:51)
--- NOTE | 2021-01-14 12:51 | CM.SWNOTE ---
HUNTER TRAPPER Note This HUNTER TRAPPER requested for consult to assess needs and complete CD assessment for this 65 yo female, daily meth user, presents to the ED complaining of a puffy face and SOBx7 days. PMH includes diabetes, COPD/asthma, active smoker and active methamphetamine user PCP: None listed Payer: [facility] According to Dr Diaz, patient presumed to have acute heart failure unknown EF (echo pending) likely secondary to meth use ( no prior heart hx), patient will likely be here an additional day or two. Met w/patient to introduce role. Patient is not feeling well, appears to be in a w/d process, this visit kept relatively brief. Patient currently living in a 5th wheel on a friend's property, has a friend living in a trailer right in front of me. 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 Patient has 7 children, one dtr, Blanca, lives locally and patient finds supportive. Other children are all spread out Patient admits to daily meth use about 5 to 10 daily. Patient started using meth when she was 38 yo when her brother was making it. Patient's spouse also used regularly. Patient sounds regretful she ever started using. Patient has been using on and off since she started and states she was sober a year ago maybe Patient became tearful talking about her medical condition, as well as talking about her children. Patient states I just got them back in my life and states if they find out she is currently using they will drop me so fast and I will be completely alone. Patient admits to having seldom-no feelings of sofie in her life and feeling very isolated and alone. Patient has some distant h/o drug treatment, will not elaborate for this HUNTER TRAPPER today. Patient shaking and lunch has arrived. Patient states she wants to be clean, she is motivated to keep her relationships w/her 7 children and 19 grandchildren. This HUNTER TRAPPER suggested returning tomorrow to review ideas for treatment, counseling, recovery ? and patient agreeable to this. Of note- patient does not drive so relies on public transportation for errands and appts. Updated RN Jem Finney, HUNTER TRAPPER
--- NOTE | 2021-01-14 14:18 | PT.IIE ---
Surgical History (Last Reviewed 01/13/21 @ 16:40 by Michael Diaz DO) Status post surgery (02/09/10) Medical History (Last Reviewed 01/13/21 @ 16:40 by Michael Diaz DO) COPD (chronic obstructive pulmonary disease) Diabetes IV drug user Methamphetamine use Physical Therapy Inpatient Evaluation/Re-Eval M1 PT/OT-IP Prior Functional Status Start: 01/14/21 15:49 Freq: NEEDED Status: Active Protocol: Document 01/14/21 14:18 AB (Rec: 01/14/21 16:05 AB [id number]) Medical Review Prior Functional Status Medical History Reviewed Yes Communication able to make needs known Mobility and Gait pt stated that she is independent with all mobilities and ambulation without AD Social History Household Members none Living Arrangements RV Number of Floors (Floors) Two Floors Number of Stairs To Enter/Railing? lives on a 5th wheel has 2 steps with L rail to enter; 1 step to the bathroom and 3 steps to the bed Home Environment Standard Height Toilet,Tub/ Shower Additional Social History Comment pt stated that she uses her friends toilet/ shower since her does not have any water connection M2 PT-IP Current Condition Start: 01/14/21 15:49 Freq: NEEDED Status: Active Protocol: Document 01/14/21 14:18 AB (Rec: 01/14/21 16:05 AB [id number]) Physical Therapy Current Condition Current Condition Evaluation Date 01/14/21 Treatment Diagnosis CHF; difficulty in walking Onset Date 01/13/21 M3 PT-IP Subjective Start: 01/14/21 15:49 Freq: NEEDED Status: Active Protocol: Document 01/14/21 14:18 AB (Rec: 01/14/21 16:05 AB [id number]) Subjective Physical Therapy Visit Type Type Initial Evaluation Visit Start Time 14:18 Visit Stop Time 14:39 Total Visit Minutes 21 Number of FATS AND OILS LOADER Visits 0 Physical Therapy Visit Comments Patient Comments agreeable to do PT Therapy Pain Assessment Pain Present Pain Present Denied Pain M4 PT-IP Mobility and Gait Start: 01/14/21 15:49 Freq: NEEDED Status: Active Protocol: Document 01/14/21 14:18 AB (Rec: 01/14/21 16:05 AB [id number]) PT-Bed Mobility Assessment Supine to Sit Supine to Sit Standby Assistance Sit to Supine Sit to Supine Standby Assistance PT-Transfer Assessment Sit to and From Stand Sit to and from Stand Standby Assistance Equipment Transfer Assistive Device None,Gait Belt Transfers Transfer Destination Chair Transfer Technique ambulated without AD Transfer Ability Level of Assist Standby Assistance Comments Mobility Comments pt can be impulsive. completed supine to sit SBA. pt was able to sit on EOB SBA. pt with resting tremors: trunk, and LE. O2 sat 96%. no c/o SOB. ambulated in room without AD 30 ft SBA. presents with unsteady gait but without LOB. agreed to ambulate in the hallway and completed 75ft without AD SBA. O2 sat 94%, HR 103. pt sat on chair to rest. O2 sat increased to 99% HR 96bpm. pt completed up/down step stool SBA and cues for safety. pt agreed to sit up on chair . positioned on chair. call light and table placed within reach. Gait Assessment Gait Gait Assistance Required: Standby Assistance Distance (Feet) 75 Able to Maintain Weight Bearing Status Yes During Gait Assistive Devices Assistive Device None,Gait Belt Orthotic/Prosthetic Devices or Brace: No Gait Deviations General Gait Pattern Antalgic,Decreased Feet Clearance Factors Limiting Gait Function Factors Limiting Gait Function Decreased Activity Tolerance, Decreased Strength,Poor Safety Awareness Comments Gait Comments pls refer to mobility section for details Stair Climbing Assessment Evaluation Level of Assist On Stairs Standby Assistance Devices Stair Climbing Assistive Devices None Technique/Endurance Stair Climbing Direction Ascend and Descend Stair Climbing Technique Step to Step Number of Steps Climbed 1 Query Text: Stair Climbing Set # Repetitions (reps) 2 PT-Balance Assessment Sitting Balance and Reactions Static Sitting Balance Ability Good Dynamic Sitting Balance Ability Good Standing Balance and Reactions Static Standing Balance Ability Good Dynamic Standing Balance Ability Fair Device Used without AD M5 PT-IP Objective Assessments Start: 01/14/21 15:49 Freq: NEEDED Status: Active Protocol: Document 01/14/21 14:18 AB (Rec: 01/14/21 16:05 AB [id number]) Orientation Orientation/Cognition Level of Alertness Alert Orientation Name,Place,Situation Safety Awareness Decreased Safety Awareness Gross Range of Motion Lower Extremity ROM Assessment Within Functional Limits Strength Lower Extremity Strength Assessment Within Functional Limits Coordination Assessment Gross Coordination Gross Coordination WNL Sensation Assessment Sensation Gross Sensation WNL Muscle Tone Muscle Tone WNL Yes M6 PT-IP Treatment Start: 01/14/21 15:49 Freq: NEEDED Status: Active Protocol: Document 01/14/21 14:18 AB (Rec: 01/14/21 16:05 AB [id number]) Physical Therapy Treatment Education Education Provided Safety M7 PT-IP Assessment and Plan Start: 01/14/21 15:49 Freq: NEEDED Status: Active Protocol: Document 01/14/21 14:18 AB (Rec: 01/14/21 16:05 AB [id number]) PT Summary Assessment and Plan Potential Rehabilitation Potential Good Status of Condition at Evaluation Stable Summary Impairments Strength,Balance,Bed Mobility, Transfers,Gait,Activity Tolerance Assessment Summary pt requiring SBA with mobility but presents with decrerase activity tolerance affecting mobility independence. pt lives alone but stated that her friend will be able to assist if needed. will continue to assess progress. plan is for pt to go home. Goals Bed Mobility Goal Independent Transfer Goal Independent Gait Goal Independent Gait Distance 200 Other Goals up/down 3 steps without rails mod I Days to Meet Goals 5 Frequency of Treatment Frequency Of Treatment Once a Day Treatment Plan Physical Therapy Treatment Plan Bed Mobility Training,Transfer Training,Gait Training, Therapeutic Exercise,Balance Retraining,Discharge Planning, Neuromuscular Re-ed, Coordination Retraining Recommendations To Nursing Amount of Assist Needed Standby Assistance Discharge Recommendations PT Discharge Recommendations Home with Assistance Transportation Needs at Discharge Private Vehicle
--- NOTE | 2021-01-14 18:47 | PM.PN.1 ---
Subjective Subjective Date Patient Seen: 01/14/21 Time Patient Seen: 18:47 Interval history: Chrissy Nieves is a 65 year old female with a past medical history of diabetes, COPD/asthma, active smoker and active methamphetamine user who presented with worsening shortness of breath over the past month to the emergency room. Admitted for further management of presumed acute heart failure secondary to methamphetamine use. Echocardiogram returned with borderline EF of 45-50%. Patient symptoms are improving today with continued lasix therapy. Denies fever, chills, nausea, vomiting, abdominal pain. Exam Vital Signs (past 8 hours): - 01/14/21 12:00 01/14/21 14:31 01/14/21 15:40 Temperature 99.4 F 97.5 F L Pulse Rate 89 94 H Respiratory Rate 20 18 Blood Pressure 134/87 161/78 H Pulse Oximetry 96 96 01/14/21 15:49 01/14/21 16:14 Temperature Pulse Rate 79 Respiratory Rate 18 Blood Pressure Pulse Oximetry 96 96 Oxygen Delivery Method Room Air Oxygen Flow Rate 0 Narrative Exam Narrative: GENERAL APPEARANCE: Well developed, well nourished, in no acute distress but mildly anxious and fidgety. SKIN: Inspection of the skin reveals scattered ecchymosis and scarring bilaterally in her extremities. HEENT: Normocephalic atraumatic, extraocular muscles are intact, oropharynx is clear and mucous membranes are moist, neck is supple without adenopathy NECK: Supple and symmetric. There was no thyroid enlargement, and no tenderness, or masses were felt. CHEST: Normal AP diameter and normal contour without any kyphoscoliosis. LUNGS: Auscultation of the lungs revealed diminshes breath sounds bilateral lung bases, but no wheezing or obvious crackles. CARDIOVASCULAR: There was a regular rate and rhythm without any murmurs, gallops, rubs. Peripheral pulses were 2+ and symmetric. ABDOMEN: Soft and nontender with normal bowel sounds. No ascites was noted. MUSCULOSKELETAL: There was no tenderness or effusions noted. Muscle strength and tone were normal. EXTREMITIES: No cyanosis, clubbing. Trace pedal edema bilaterally. NEUROLOGIC: Alert and oriented x 3. Normal affect although slightly anxious as noted above. Strength is +5/5 in the Upper Extremities and Lower Extremities Bilaterally. Sensation to touch was normal. Objective Imaging Echo: Radiologist's impression: Interpretation Summary The left ventricle is normal in size. The ejection fraction is estimated to be 45-50%. There is a hypokinesis of basal to mid inferior wall as well as basal to mid inferior septum. Diastolic parameters suggest a pseudonormalization pattern, consistent with probable elevated filling pressures. The right ventricle is grossly normal size. Right ventricular systolic function is at the lower limits of normal. Both atria are severely dilated. There is moderate tricuspid regurgitation. The right ventricular systolic pressure is estimated to be at least 51 mmHg based on an estimated right atrial pressure of 15 mm Hg. There is moderate pulmonary hypertension. BP: 168/123 mmHg Labs Result Diagrams: 01/14/21 05:57 01/14/21 05:57 Labs: Laboratory Results - last 24 hr 01/14/21 01/14/21 01/14/21 05:57 05:57 05:57 WBC 11.2 H D RBC 4.31 Hgb 12.8 Hct 38.4 MCV 89.2 MCH 29.8 MCHC 33.4 RDW 14.4 Plt Count 177 Neut % (Auto) 79.4 H Lymph % (Auto) 12.5 L [place] % (Auto) 6.9 Eos % (Auto) 0.1 L Baso % (Auto) 1.1 Neut # (Auto) 8900 H Lymph # (Auto) 1400 [place] # (Auto) 800 Eos # (Auto) 0 Baso # (Auto) 100 Sodium 137 Potassium 3.8 Chloride 101 Carbon Dioxide 26 BUN 29 H Creatinine 0.83 Estimated GFR > 60.0 BUN/Creatinine Ratio 34.9 H Glucose 179 H Hemoglobin A1c 7.1 H Calcium 9.0 Magnesium 1.6 Total Bilirubin 0.4 Conjugated Bilirubin 0.0 Unconjugated Bilirubin 0.4 AST 57 H ALT 53 H Alkaline Phosphatase 149 H Total Protein 7.8 Albumin 4.0 Globulin 3.8 Albumin/Globulin Ratio 1.1 Triglycerides 149 Cholesterol 159 LDL Cholesterol, Calc 70 HDL Cholesterol 59 TSH 01/14/21 05:57 WBC RBC Hgb Hct MCV MCH MCHC RDW Plt Count Neut % (Auto) Lymph % (Auto) [place] % (Auto) Eos % (Auto) Baso % (Auto) Neut # (Auto) Lymph # (Auto) [place] # (Auto) Eos # (Auto) Baso # (Auto) Sodium Potassium Chloride Carbon Dioxide BUN Creatinine Estimated GFR BUN/Creatinine Ratio Glucose Hemoglobin A1c Calcium Magnesium Total Bilirubin Conjugated Bilirubin Unconjugated Bilirubin AST ALT Alkaline Phosphatase Total Protein Albumin Globulin Albumin/Globulin Ratio Triglycerides Cholesterol LDL Cholesterol, Calc HDL Cholesterol TSH 1.19 [facility] Medical History COPD (chronic obstructive pulmonary disease) Diabetes IV drug user Methamphetamine use Surgical History Status post surgery (02/09/10) Family History Mother Diabetes mellitus Father Congestive heart failure Social History household members: none Smoking Status: Current every day smoker Assessment & Plan Assessment & Plan narrative: Chrissy Nieves is a 65 year old female with a past medical history of diabetes, COPD/asthma, active smoker and active methamphetamine user who presented with worsening shortness of breath over the past month to the emergency room. Admitted for further management of presumed acute heart failure secondary to methamphetamine use. Echocardiogram returned with borderline EF of 45-50%. Patient symptoms are improving today with continued lasix therapy. 1. Presumed acute heart failure, unknown EF, present on admission - patient with no known prior heart history, presented with 1 month of progressive dyspnea on exertion. - CXR with cardiomegaly and vascular congestion, pro-bnp 9300. Symptoms improved with 40 mg of IV lasix in the ER and is continued 40 mg IV BID with symptoms continuing to improve today. She is less fatigued, walked well with PT. Will continue diuresis until close to euvolemia. 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 Patient was counseled on cessation. She was also counseled on tobacco cessation as well. -suspect her elevated troponins in the setting of volume overload, these downtrended shortly after admission. She denies chest pain and EKG shows some nonspecific T-wave inversions but no acute ST segment abnormalities. -TTE shows an EF of 45-50% with hypokinesis of the basal to mid inferior wall as well as the basal to mid inferior septum. There is also evidence of a mild diastolic dysfunction. -if no further improvement in symptoms, consider stress testing. - increase lisinopril and will start beta-candelario therapy tonight for elevated BP. 2. polysubstance abuse, with methamphetamine use and tobacco use. 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 She is accepting of this and interested in quitting. 3. Diabetes, type 2, control unknown, present on admission - continue patients home lantus 30, humalog 8 U TID AC, and sliding scale. A1c indicating adequate control at 7.1%. 4. COPD/asthma - patient was given steroids and albuterol in the ER. Suspect dyspnea more likely related to heart failure at this time. Do not believe this to be an acute exacerbation. Will hold further steroids at this time. Continue albuterol prn, RT eval and treat ordered. 5. Elevated troponin, acute, present on admission - suspect elevated in the setting of fluid overload and heart failure. EKG with no evidence of acute ischemia and no chest pain currently. Continued to follow until downtrending. 6. HTN - started on lisinopril as noted above, add beta candelario therapy starting this evening as patient is nearing euvolemia. Code: Full, surrogate decision maker she states is her son (not sure and this has not been formally discussed, but states children would be the only available family). DVT: HSQ BID Dispo: admitted under inpatient status as her stay is expected to exceed two midnights. Anticipate discharge as soon as tomorrow to home. COVID-19 COVID-19 status: Negative Quality VTE Deep Vein Thrombosis/Pulmonary Embolism Present on Admission: No
[2021-01-14] MEDS: METOPROLOL ER 25 MG TABLET 12.5 MG PO (21:51)
[2021-01-15] VITALS (10 sets, daily range): BP systolic 137–159; BP diastolic 78–106; PULSE 79–86; RESP 19–21; TEMP 36.9–37.1; O2SAT 94–95
[2021-01-15 05:20] LABS: Alanine Aminotransferase 55 IU/L (<35); Albumin 3.8 g/dL (3.5-5.0); Albumin Globulin Ratio 1.1 (1.0-2.8); Alkaline Phosphatase 125 U/L (38-126); Aspartate Aminotransferase 62 IU/L (14-36); BUN Creatinine Ratio 38.7 (6-22); Bilirubin Total 0.3 mg/dL (0.2-1.3); Bilirubin Unconjugated 0.3 mg/dL (0.0-1.1); Blood Urea Nitrogen 36 mg/dL (7-17); Carbon Dioxide 33 mmol/L (22-32); Chloride 101 mmol/L (98-107); Estimated Glomerular Filt Rate > 60.0 mL/min (>60); Globulin 3.6 g/dL (1.7-4.1); Glucose 94 mg/dL (80-110); HEMOLYSIS < 15 (0-50); Magnesium 1.7 mg/dL (1.6-2.3); Potassium 3.4 mmol/L (3.4-5.1); Sodium 140 mmol/L (137-145); Total Protein 7.4 g/dL (6.3-8.2)
[2021-01-15 05:21] LABS: Add Manual Diff / Slide Review NO; Basophils Absolute Auto 100 /uL (0-100); Basophils Percent Auto 1.3 % (0-2); Eosinophils Absolute Auto 100 /uL (0-450); Eosinophils Percent Auto 0.9 % (2-4); Hematocrit 38.5 % (36-46); Hemoglobin 12.7 g/dL (12.0-16.0); Lymphocytes Absolute Auto 3300 /uL (1100-4500); Lymphocytes Percent Auto 33.6 % (25-40); Mean Corpuscular Hemoglobin 29.4 PG (26-34); Monocytes Absolute Auto 700 /uL (0-900); Monocytes Percent Auto 7.4 % (3-14); Neutrophils Absolute Auto 5500 /uL (1500-7000); Neutrophils Percent Auto 56.8 % (50-75); Platelet Count 176 X10^3/uL (150-400); Red Blood Cell Count 4.32 X10^6/uL (4.0-5.2); Red Cell Distribution Width 14.5 % (11.6-14.8); White Blood Cell Count 9.7 X10^3/uL (4.5-11.0)
[2021-01-15] MEDS: FUROSEMIDE 40 MG/4 ML VIAL IV (06:42)
[2021-01-15] MEDS: METOPROLOL ER 25 MG TABLET 12.5 MG PO (08:40)
[2021-01-15] MEDS: HEPARIN 5,000 UNIT/ML VIAL 5000 UNIT SUBCUT (08:45)
[2021-01-15] MEDS: lisinopriL 10 MG TABLET 20 MG PO (08:45)
--- NOTE | 2021-01-15 08:47 | P.DS_ITS ---
History of Present Illness History of Present Illness Date Patient Seen: 01/15/21 Time Patient Seen: 08:47 Chief complaint: face puffy/sob x7 days Narrative: Chrissy Nieves is a 65 year old female with a past medical history of diabetes, COPD/asthma, active smoker and active methamphetamine user who presented with worsening shortness of breath over the past month to the emergency room. Patient states that over the past month she has had increasing shortness of breath. Initially this started with dyspnea on exertion but has now progressed to dyspnea at rest rapidly over the past week, she is only able to take a a few steps before getting short of breath. She denies any chest pain, palpitations, fevers, chills. She denies any diaphoresis, nausea, vomi ting, abdominal pain, left arm or jaw pain. She does have a cough that is worse at night but denies overt orthopnea or PND. She does complain of increasing facial swelling. She denies any lower extremity edema that she has noticed and she denies any early satiety or weight gain. She has been taking her home albuterol which occasionally helps with her symptoms. In the emergency room, the patient was markedly hypertensive to 215/124, which is improved to 157/96 after she was given oral metoprolol. She was not hypoxic on room air but was mildly tachypneic in the low 30s. She was initially t achycardic but her heart rate has improved with oral metoprolol. She was also given methylprednisone in the emergency room along with albuterol and 40 mg of furosemide. EKG shows sinus rhythm with occasional PVC. Chest x-ray shows cardiomegaly and vascular congestion. Initial laboratory evaluation revealed an unremarkable CBC, chemistries revealed an elevated glucose at 169, mild AST and ALT elevations at 61 and 54 respectively. Troponin was borderline elevated at 0.031 increased slightly to 0.035. ProBNP was elevated at 9300. Urinalysis was slightly contaminated but no evidence of active infection. Urine drug screen was positive for methamphetamines. COVID-19 testing was negative. Patient was admitted for further management of presumed acute heart failure secondary to methamphetamine use. Discharge Providers Provider Date of admission: 01/13/21 14:21 Discharge Date: 01/15/21 Consults: 01/13/21 16:26 Consult to Respiratory Therapy Evaluate & Treat Comment: Physician Instructions: Evaluate and treat 01/13/21 17:02 Consult to PROGRAMMING INTERN - Welt Treater Routine Comment: PROGRAMMING INTERN Consult: Substance Abuse Assess 01/14/21 12:19 Consult to Physical Therapy Evaluate & Treat Comment: Physician Instructions: Evaluate and Treat Discharge provider: Michael Diaz DO Summary Hospital Course Discharge Diagnosis: Please see hospital course by problem list noted below. Hospital Course: Chrissy Nieves is a 65 year old female with a past medical history of diabetes, COPD/asthma, active smoker and active methamphetamine user who presented with worsening shortness of breath over the past month to the emergency room. Admitted for further management of presumed acute heart failure secondary to methamphetamine use. Echocardiogram returned with borderline EF of 45-50%. Patient symptoms improved with medical management and diuresis. 1. Acute heart failure, borderline preserved EF of 45-50%, present on admission - patient with no known prior heart history, presented with 1 month of progressive dyspnea on exertion. - CXR with cardiomegaly and vascular congestion, pro-bnp 9300. Symptoms improved with 40 mg of IV lasix in the ER and was continued 40 mg IV BID ultimate resolution of symptoms in the hospital (ambulate ~200 feet with PT without dyspnea). 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 Patient was counseled on cessation. She was also counseled on tobacco cessation as well. -suspect her elevated troponins in the setting of volume overload, these downtrended shortly after admission. She denied chest pain and EKG showed some nonspecific T-wave inversions but no acute ST segment abnormalities. Recommend outpatient cardiology referral for further management. -TTE shows an EF of 45-50% with hypokinesis of the basal to mid inferior wall as well as the basal to mid inferior septum. There is also evidence of a mild diastolic dysfunction. -if no further improvement in symptoms, consider stress testing. -patient was discharged on lisinopril and metoprolol as well as low dose lasix upon discharge. 2. polysubstance abuse, with methamphetamine use and tobacco use. - PROGRAMMING INTERN consultation, patient is interested in resources and was counseled that her symptoms are likely due to her substance use. She is accepting of this and interested in quitting. 3. Diabetes, type 2, present on admission, chronic - continue patients home lantus 30, humalog 8 U TID AC, and sliding scale was added as an inpatient. A1c indicating adequate control at 7.1%. 4. COPD/asthma - patient was given steroids and albuterol in the ER. Suspect dyspnea more likely related to heart failure at this time. Do not believe this to be an acute exacerbation. Will hold further steroids at this time. Continue albuterol prn at home. 5. Elevated troponin, acute, present on admission, improved. - suspect elevated in the setting of fluid overload and heart failure. EKG with no evidence of acute ischemia and no chest pain currently. Continued to follow until downtrending. 6. HTN - started on multiple agents as noted above. Status at Discharge Cognitive/behavioral status at discharge: oriented Functional status at discharge: independent ambulation Overall status at discharge: patient is progressing back to baseline Time Spent with Patient Time spent: Greater than 30 minutes Exam Vital Signs (past 8 hours): - 01/15/21 00:48 01/15/21 04:00 01/15/21 04:37 Temperature 98.8 F 98.7 F Pulse Rate 86 83 Respiratory Rate 19 21 Blood Pressure 154/78 H 156/106 H Pulse Oximetry 95 94 94 01/15/21 06:50 Temperature Pulse Rate Respiratory Rate Blood Pressure 159/86 H Pulse Oximetry Oxygen Delivery Method Room Air Oxygen Flow Rate 0 Narrative Exam Narrative: GENERAL APPEARANCE: Well developed, well nourished, in no acute distress but mildly anxious and fidgety. SKIN: Inspection of the skin reveals scattered ecchymosis and scarring bilaterally in her extremities. HEENT: Normocephalic atraumatic, extraocular muscles are intact, oropharynx is clear and mucous membranes are moist, neck is supple without adenopathy NECK: Supple and symmetric. There was no thyroid enlargement, and no tenderness, or masses were felt. CHEST: Normal AP diameter and normal contour without any kyphoscoliosis. LUNGS: Auscultation of the lungs releaved diffuse inspiratory wheezes, but no wheezing or obvious crackles. CARDIOVASCULAR: There was a regular rate and rhythm without any murmurs, gallops, rubs. Peripheral pulses were 2+ and symmetric. ABDOMEN: Soft and nontender with normal bowel sounds. No ascites was noted. MUSCULOSKELETAL: There was no tenderness or effusions noted. Muscle strength and tone were normal. EXTREMITIES: No cyanosis, clubbing. Trace pedal edema bilaterally. NEUROLOGIC: Alert and oriented x 3. Normal affect although slightly anxious as noted above. Strength is +5/5 in the Upper Extremities and Lower Extremities Bilaterally. Sensation to touch was normal. Objective Labs Result Diagrams: 01/15/21 04:46 01/15/21 04:46 Labs: Laboratory Results - last 24 hr 01/15/21 01/15/21 04:46 04:46 WBC 9.7 RBC 4.32 Hgb 12.7 Hct 38.5 MCV 89.0 MCH 29.4 MCHC 33.0 RDW 14.5 Plt Count 176 Neut % (Auto) 56.8 D Lymph % (Auto) 33.6 D [place] % (Auto) 7.4 Eos % (Auto) 0.9 L Baso % (Auto) 1.3 Neut # (Auto) 5500 Lymph # (Auto) 3300 [place] # (Auto) 700 Eos # (Auto) 100 Baso # (Auto) 100 Sodium 140 Potassium 3.4 Chloride 101 Carbon Dioxide 33 H BUN 36 H Creatinine 0.93 Estimated GFR > 60.0 BUN/Creatinine Ratio 38.7 H Glucose 94 Calcium 9.0 Magnesium 1.7 Total Bilirubin 0.3 Conjugated Bilirubin 0.0 Unconjugated Bilirubin 0.3 AST 62 H ALT 55 H Alkaline Phosphatase 125 Total Protein 7.4 Albumin 3.8 Globulin 3.6 Albumin/Globulin Ratio 1.1 [facility] Medical History COPD (chronic obstructive pulmonary disease) Diabetes IV drug user Methamphetamine use Surgical History Status post surgery (02/09/10) Family History Mother Diabetes mellitus Father Congestive heart failure Social History household members: none Smoking Status: Current every day smoker Discharge Plan Discharge Plan Patient Disposition: Home Provider Discharge Comment: You were admitted to the hospital for shortness of breath, most likely due to heart failure. Your blood pressure was also high. This heart failure may be due to elevated blood pressure, methamphetamine, or low blood flow called ischemia. I recommend you follow up with your PCP as soon as possible for a referral to cardiology. Discharge orders & Medications Prescriptions: New lisinopril 20 mg tablet 20 mg PO DAILY 30 Days Qty: 30 RF: 0 metoprolol succinate 25 mg Tablet Extended Release 24 Hr 12.5 mg PO BID 30 Days Qty: 30 RF: 0 furosemide 20 mg tablet 20 mg PO DAILY 30 Days Qty: 30 RF: 0 (DME) nebulizer and compressor Device See Rx Instructions .ROUTE .MEDSUPPLY Qty: 1 RF: 0 albuterol sulfate 90 mcg/actuation HFA aerosol inhaler 2 puff inhalation Q4-6H PRN (Reason: shortness of breath or wheezing) 30 Days Qty: 18 RF: 0 albuterol sulfate 2.5 mg /3 mL (0.083 %) solution for nebulization 2.5 mg inhalation QID PRN (Reason: shortness of breath or wheezing) 30 Days Qty: 90 RF: 0 Continued Lantus U-100 Insulin 100 unit/mL solution 30 unit SUBCUT QPM RF: 0 insulin lispro 100 unit/mL solution 8 unit SUBCUT TID RF: 0 Diet/Activity/Treatments Diet: Diet as Tolerated Activity: As tolerated Visit Report/Discharge Packet Instructions: Methamphetamine Quality VTE Deep Vein Thrombosis/Pulmonary Embolism Present on Admission: No
--- NOTE | 2021-01-15 11:25 | PT-IP ANOTE ---
DANN Sanon states that pt is agitated due to d/c and isn't appropriate for PT at this time.
[2021-01-15] MEDS: INSULIN ASPART 100 UNIT/ML INSULN PEN SUBCUT (12:13)
[2021-01-15] MEDS: INSULIN ASPART 100 UNIT/ML INSULN PEN 8 UNIT SUBCUT (12:14)
--- NOTE | 2021-01-15 12:59 | PC.NURSE ---
Addendum entered by Radha Mcfadden R.N. 01/15/21 13:07: Pt sleeping; belongings ready at bedside for d/c; awaiting taxi Original Note: @ 1130 Pt requests that this RN call her only listed contact, Ray pertaining to transportation; Ray says to this RN that he is not going to tack picker patient since he is located in [place] and that he is not willing to talk with patient; this RN informs patient of this information; she is agitated, undressing, taking off telemetry, speaking loudly, crying, using profanity, saying that she is walking out, saying, I need my purse, I need my keys, I don't have anything. This RN asks patient if her daughter lives in [place]; pt says that she does not have my daughter's phone number, I don't know where she lives. BROOCH AND BRACELET MAKER, Amanda speaks and deescalates patient; ICU informed of discontinuation of telemetry; IV d/c @ 1200 patient calms; this RN reviews d/c instructions, with emphasis on Rx medications at [facility], contact information for [facility], and S/Sx of CHF
--- NOTE | 2021-01-15 14:57 | CM.DPNOTE ---
DC Note Patient discharged today by Dr Diaz. Compiled a relevant list of resources for patient/[place] to include housing resources and CD resources per patient's request. Placed call to friend Bud per patient's request, transferred call into patient's room. Patient had planned to get a ride from [place] Later, passing patient's room, RN Coordinator RAUL Sanon and DANN Garcia attempting to deescalate patient, she had become hysterical, pacing the room, going in and out of BR, and was yelling at staff, stating over and over I need my purse, I need my purse, my purse is in [place]. Patient very difficult to calm, Purse not found in room. Patient states she has no $ and does not have her burden into her 5th wheel. Patient inconsolable until told friend Bud would be contacted. RN able to remove line access and get DC signature. Placed call to friend Bud again who explained he was able to help patient a little, but was in [place] now, does not have patient's purse, and that patient's dtr should be contacted instead of him. No contact for dtr on the chart. patient does not have dtr's number or address. Patient inevitably calmed and then fell asleep. Attempted [facility] transport for most of the day; they continued to say they were waiting on [facility] transport to get back to them with a time for p/u. Patient beginning to escalate again, made decision to call [employer] and ask for transport to [facility] using taxi voucher in order to avoid a discharge delay. Placed call to [facility] and p/u available at 1530, Taxi Voucher completed and signed by this HOCKEY INSTRUCTOR, original placed in CM Sup Maryana Pate's folder for review and copy will be provided to tanker driver. Updated SILK SCREENER, patient, and then placed call to [facility] to update JOCELYNE Burns
--- NOTE | 2021-01-15 16:46 | PC.NURSE ---
patient left in stable condition. Taxi form given to bus van driver, and made aware patient needs to p/u rx's at [facility]. Patient's VSS.
== END 2021-01-15 15:45 | disposition home or self-care (01) | DRG 291 ==
LOC: ED 13:17 → AC 14:22
PROVIDERS: Admitting Provider Internal Medicine; Emergency Provider Emergency Medicine; Referring Provider Emergency Medicine; Visit Provider Internal Medicine
DX: I11.0 Hypertensive heart disease with heart failure (principal); I50.31 Acute diastolic (congestive) heart failure; I42.0 Dilated cardiomyopathy; F15.10 Other stimulant abuse, uncomplicated; J44.9 Chronic obstructive pulmonary disease, unspecified; F17.210 Nicotine dependence, cigarettes, uncomplicated; E11.9 Type 2 diabetes mellitus without complications; Z79.4 Long term (current) use of insulin; Z20.822 Contact with and (suspected) exposure to COVID-19; R77.8 Other specified abnormalities of plasma proteins
CPT/HCPCS: 36415; 71046; 80048; 80053; 80061; 80076; 80305; 81001; 81003; 82962; 83036; 83605; 83735; 83880; 84443; 84484; 85025; 87040; 87635; 93005; 93306; 94150; 94640; 94760; 96374; 96375; 97161; 99285; 99406; J1644; J1940; J2930; J7613

== ENCOUNTER 2022-03-24 14:38 | Emergency (ER) | payer MEDICARE, MEDICAID, SELFPAY ==
[2021-01-13 14:22] VITALS: BMI 30.9
[2022-03-24 14:49] VITALS: BP 215/115; PULSE 99; RESP 16; TEMP 35.8; O2SAT 97; BMI 29.2
--- NOTE | 2022-03-24 14:51 | DI.RAD.S_ITS ---
PROCEDURE: XR CHEST 2V INDICATIONS: Cough, shortness of breath with exertion TECHNIQUE: 2 views of the chest were acquired. COMPARISON: [facility], CR, XR CHEST 2V, 01/13/2021, 11:51. FINDINGS: Surgical changes and devices: None. Lungs and pleura: Increased interstitial prominence and cephalization of pulmonary vessels No pleural effusions or pneumothorax. Mediastinum: Mediastinal contours are normal. Heart size is normal. Bones and chest wall: No suspicious bony abnormalities. Soft tissues appear unremarkable. IMPRESSION: Increased pulmonary interstitial prominence with cephalization of pulmonary vessels, consistent with mild-moderate pulmonary edema. Dictated by: Mario Cleaning M.D. on 03/24/2022 at 15:13 Approved by: Mario Celaning M.D. on 03/24/2022 at 15:14
[2022-03-24 15:37] LABS: COVID19 -Nasal RAPID Negative (Negative)
== END 2022-03-24 17:10 | disposition left against medical advice (07) ==
PROVIDERS: Emergency Provider Emergency Medicine
DX: R06.02 Shortness of breath (principal); Z20.822 Contact with and (suspected) exposure to COVID-19
CPT/HCPCS: 71046; 87635; 99281; C9803

== ENCOUNTER 2022-08-27 11:09 | Emergency (ER) | payer MEDICARE, MEDICAID, SELFPAY ==
[2021-01-13 14:22] VITALS: BMI 30.9
[2022-08-27] VITALS (12 sets, daily range): BP systolic 131–189; BP diastolic 81–105; PULSE 83–102; RESP 16–29; TEMP 36.9; O2SAT 92–99; BMI 29.2
--- NOTE | 2022-08-27 11:08 | ED_ITS ---
HPI - Nausea/Vomiting/Diarrhea General Chief complaint: Nausea/Vomiting/Diarrhea Stated complaint: diarrhea x3 days Time Seen by Provider: 08/27/22 11:15 History of Present Illness HPI Narrative: Patient is 67-year-old female history of insulin-dependent diabetes presenting today with diarrhea for 3 days generally not feeling well. No dizziness no lightheadedness no chest pain palpitations. She is homeless. She denies passing out no fever or chills. She denies any shortness of breath. No specific abdominal pain. She was able to ambulate in the emergency department. She is able to drink fluids no persistent vomiting. Related Data Home Medications Medication Instructions Recorded Confirmed insulin glargine 100 unit/mL 30 unit SUBCUT QPM 01/13/21 01/13/21 subcutaneous solution (Lantus U-100 Insulin) insulin lispro 100 unit/mL 8 unit SUBCUT TID 01/13/21 01/13/21 subcutaneous solution Previous Rx's Medication Instructions Recorded nebulizer and compressor #1 ea 01/15/21 Allergies Allergy/AdvReac Type Severity Reaction Status Date / Time codeine Allergy Verified 01/13/21 14:34 cortisone Allergy Verified 01/13/21 14:34 hydromorphone [From Dilaudid] Allergy Verified 01/13/21 14:34 Review of Systems Review of Systems Narrative: GENERAL: Denies chills, fatigue, malaise, fever, sweats, travel HEENT: Denies sinus pain, ear pain, sore throat, difficulty swallowing, neck pain RESPIRATORY: Denies dyspnea, cough, wheezing, hemoptysis, sputum. CARDIOVASCULAR: Denies chest pain, palpitations, orthopnea, edema GASTROINTESTINAL: See HPI : Denies dysuria, frequency, incontinence, hematuria, urinary retention, flank pain. MUSCULOSKELETAL: Denies weakness, joint pain, or bony pain SKIN: No rash, no erythema, no pruritus NEUROLOGIC: Denies weakness, dizziness, headache, numbness, change in speech, confusion PSYCHIATRIC: No concerning psychosocial issues. 12 point review of systems is negative except for those stated above and HPI Patient History Medical History COPD (chronic obstructive pulmonary disease) Diabetes IV drug user Methamphetamine use Surgical History Status post surgery (02/09/10) Family History Mother Diabetes mellitus Father Congestive heart failure Social History household members: none Smoking Status: Current every day smoker Smoking Status: Current every day smoker alcohol intake frequency: holidays/special occasions only Substance Use Type: methamphetamine Exam Initial Vital Signs Initial Vital Signs: Vital Signs Temperature 98.5 F 08/27/22 11:13 Pulse Rate 91 H 08/27/22 11:13 Respiratory Rate 18 08/27/22 11:13 Blood Pressure 131/84 08/27/22 11:13 Pulse Oximetry 95 08/27/22 11:13 Oxygen Delivery Method 08/27/22 11:13 GENERAL: Alert slightly disheveled 67-year-old female HEENT: Head atraumatic,EOMI, pupils reactive, face symmetric, moist mucous membranes CARDIOVASCULAR: Regular rate and rhythm without murmurs, rubs or gallops. RESPIRATORY: Breath sounds equal bilaterally, no wheezes rales or rhonchi. ABDOMEN: Soft, nontender. Normoactive bowel sounds all 4 quadrants. No guarding or rebound. EXTREMITIES: Normal range of motion, no clubbing or edema. Neurovascularly intact NEUROLOGICAL: Alert and oriented x4. SKIN: Warm, dry, no laceration, no petechiae, no rashes or lesions. Course Orders Ordered: ED Orders 08/27/22 11:16 Consult to [facility] CENTER ASSOCIATE - District [facility] Administrator Stat 08/27/22 11:22 Chest [XR chest 1V] Stat 08/27/22 12:10 CBC Auto Diff [Complete Blood Count AUTO DIFF] Stat CMP [Comprehensive Metabolic Panel] Stat Lactate (Lactic Acid) Stat Lipase Stat Troponin & CK Cardiac Panel Stat Discontinued Medications Sodium Chloride (Normal Saline 0.9%) 1,000 mls @ 1,000 mls/hr IV BOLUS ONE Stop: 08/27/22 12:22 Last Infusion: 08/27/22 13:25 Dose: 0 mls/hr Documented By: Admin: 08/27/22 12:18 Dose: 1,000 mls/hr Documented By: AT Vital Signs Vital signs: Vital Signs - 8 hr 08/27/22 11:13 08/27/22 12:14 08/27/22 12:13 Temperature 98.5 F Pulse Rate 91 H 86 87 Respiratory Rate 18 18 27 H Blood Pressure 131/84 145/86 H Pulse Oximetry 95 99 93 Oxygen Delivery Method Room Air Room Air 08/27/22 12:30 08/27/22 12:30 08/27/22 13:00 Temperature Pulse Rate 102 H 83 Respiratory Rate 20 17 Blood Pressure 153/105 H Pulse Oximetry 93 Oxygen Delivery Method Room Air 08/27/22 13:01 08/27/22 13:01 08/27/22 13:30 Temperature Pulse Rate 85 94 H Respiratory Rate 16 23 Blood Pressure 189/97 H Pulse Oximetry 92 Oxygen Delivery Method Room Air 08/27/22 13:31 08/27/22 13:31 08/27/22 14:00 Temperature Pulse Rate 90 89 Respiratory Rate 29 H 24 Blood Pressure 165/95 H Pulse Oximetry 93 94 Oxygen Delivery Method 08/27/22 14:01 08/27/22 14:31 08/27/22 14:31 Temperature Pulse Rate 89 98 H 96 H Respiratory Rate 23 20 22 Blood Pressure 177/81 H Pulse Oximetry 96 92 Oxygen Delivery Method Room Air Room Air 08/27/22 15:00 Temperature Pulse Rate 88 Respiratory Rate 20 Blood Pressure Pulse Oximetry 97 Oxygen Delivery Method Room Air MDM - Nausea/Vomiting/Diarrhea Lab Data Result diagrams: 08/27/22 12:10 08/27/22 12:10 Labs: Lab Results 08/27/22 08/27/22 08/27/22 Range/Units 12:10 12:10 12:10 WBC 6.2 (4.5-11.0) X10^3/uL RBC 5.15 (4.0-5.2) X10^6/uL Hgb 15.3 (12.0-16.0) g/dL Hct 44.7 (36-46) % MCV 86.8 (80-100) fL MCH 29.8 (26-34) PG MCHC 34.3 (30-36) % RDW 14.6 (11.6-14.8) % Plt Count 172 (150-400) X10^3/uL Neut % (Auto) 60.2 (50-75) % Lymph % (Auto) 26.3 (25-40) % [place] % (Auto) 11.9 (3-14) % Eos % (Auto) 0.3 L (2-4) % Baso % (Auto) 1.3 (0-2) % Neut # (Auto) 3700 (8923-1756) /uL Lymph # (Auto) 1600 (3344-1315) /uL [place] # (Auto) 700 (0-900) /uL Eos # (Auto) 0 (0-450) /uL Baso # (Auto) 100 (0-100) /uL Sodium 136 L (137-145) mmol/L Potassium 3.3 L (3.4-5.1) mmol/L Chloride 102 (98-107) mmol/L Carbon Dioxide 25 (22-32) mmol/L BUN 8 (7-17) mg/dL Creatinine 0.65 (0.52-1.04) mg/dL Estimated GFR > 60 (>60) mL/min BUN/Creatinine Ratio 12.3 (6-22) Glucose 161 H (80-110) mg/dL Lactate 1.2 (0.7-2.1) mmol/L Calcium 8.2 L (8.4-10.2) mg/dL Total Bilirubin 0.8 (0.2-1.3) mg/dL AST 72 H (14-36) IU/L ALT 73 H (<35) IU/L Alkaline Phosphatase 109 (38-126) U/L Total Creatine Kinase 83 (30-135) U/L CK-MB (CK-2) TNP CK-MB (CK-2) Rel Index TNP Troponin I 0.019 (0.01-0.034) ng/mL Total Protein 7.9 (6.3-8.2) g/dL Albumin 3.8 (3.5-5.0) g/dL Globulin 4.1 (1.7-4.1) g/dL Albumin/Globulin Ratio 0.9 L (1.0-2.8) Lipase 50 (23-300) U/L Imaging Data Chest x-ray: Radiologist's Impression: Signed Patient: Chrissy Anthony MR#: [id number] : 1955 Acct:[id number] Age/Sex: 67 / F Date of Service: 08/27/22 Loc: ED Accession Number: [id number] ?? Procedure: XR chest 1V Ordering Provider: Riri Larry D.O. PROCEDURE:? XR CHEST 1V ? INDICATIONS:? weakness ? TECHNIQUE:? One view of the chest was acquired.? ? COMPARISON:? [facility], CR, XR CHEST 2V, 03/24/2022, 14:41. ? FINDINGS:? ? Surgical changes and devices:? None.? ? Lungs and pleura:? Lungs are clear.? No pleural effusions or pneumothorax.? ? Mediastinum:? Mediastinal contours appear normal.? Heart size is normal.? ? Bones and chest wall:? No suspicious bony lesions.? Overlying soft tissues appear unremarkable.? ? IMPRESSION:? No acute cardiopulmonary findings ? ? ? Approved by: Dmitriy Sams M.D. on 08/27/2022 at 11:21? MDM Narrative Medical decision making narrative: Alert 67-year-old female with diarrhea for 3 days. No evidence of dehydration or DKA. Eating a sandwich in the emergency department. She has absolutely no abdominal pain even on reexamination. At this time I see no need for CT. She was evaluated by social Work. She was unable to give a sample in the emergency department. Discharge Plan Departure Patient Disposition: Home Clinical Impression: Diarrhea Instructions: Diarrhea Activity Restrictions/Additional Instructions: *You have been diagnosed with diarrhea *What to do: Increase fluids as tolerated *Continue to take medications as directed *Follow up with your primary care provider in 2-3 days or call [phone] *Return to ER if you should have persistent diarrhea weakness nausea vomiting or any new, worsening or concerning symptoms Prescriptions: No Action Lantus U-100 Insulin 100 unit/mL solution 30 unit SUBCUT QPM insulin lispro 100 unit/mL solution 8 unit SUBCUT TID (DME) nebulizer and compressor Device See Rx Instructions .ROUTE .MEDSUPPLY Qty: 1 0RF Rx Instructions: One nebulizer and compressor for COPD management Visit Report Forms: Patient Portal/API
--- NOTE | 2022-08-27 11:22 | DI.RAD.S_ITS ---
PROCEDURE: XR CHEST 1V INDICATIONS: weakness TECHNIQUE: One view of the chest was acquired. COMPARISON: [facility], CR, XR CHEST 2V, 03/24/2022, 14:41. FINDINGS: Surgical changes and devices: None. Lungs and pleura: Lungs are clear. No pleural effusions or pneumothorax. Mediastinum: Mediastinal contours appear normal. Heart size is normal. Bones and chest wall: No suspicious bony lesions. Overlying soft tissues appear unremarkable. IMPRESSION: No acute cardiopulmonary findings Approved by: Dmitriy Sams M.D. on 08/27/2022 at 11:21
[2022-08-27] MEDS: SODIUM CHLORIDE 0.9% 1,000 ML 1000 ML IV (12:18)
[2022-08-27 12:26] LABS: Add Manual Diff / Slide Review NO; Basophils Absolute Auto 100 /uL (0-100); Basophils Percent Auto 1.3 % (0-2); Eosinophils Absolute Auto 0 /uL (0-450); Eosinophils Percent Auto 0.3 % (2-4); Hematocrit 44.7 % (36-46); Hemoglobin 15.3 g/dL (12.0-16.0); Lymphocytes Absolute Auto 1600 /uL (1100-4500); Lymphocytes Percent Auto 26.3 % (25-40); Mean Corpuscular HGB Conc 34.3 % (30-36); Mean Corpuscular Hemoglobin 29.8 PG (26-34); Mean Corpuscular Volume 86.8 fL (80-100); Monocytes Absolute Auto 700 /uL (0-900); Monocytes Percent Auto 11.9 % (3-14); Neutrophils Absolute Auto 3700 /uL (1500-7000); Neutrophils Percent Auto 60.2 % (50-75); Platelet Count 172 X10^3/uL (150-400); Red Blood Cell Count 5.15 X10^6/uL (4.0-5.2); Red Cell Distribution Width 14.6 % (11.6-14.8); White Blood Cell Count 6.2 X10^3/uL (4.5-11.0)
[2022-08-27 12:37] LABS: Alanine Aminotransferase 73 IU/L (<35); Albumin 3.8 g/dL (3.5-5.0); Albumin Globulin Ratio 0.9 (1.0-2.8); Alkaline Phosphatase 109 U/L (38-126); Aspartate Aminotransferase 72 IU/L (14-36); BUN Creatinine Ratio 12.3 (6-22); Bilirubin Total 0.8 mg/dL (0.2-1.3); Blood Urea Nitrogen 8 mg/dL (7-17); Calcium 8.2 mg/dL (8.4-10.2); Carbon Dioxide 25 mmol/L (22-32); Chloride 102 mmol/L (98-107); Creatine Kinase 83 U/L (30-135); Estimated Glomerular Filt Rate > 60 mL/min (>60); Globulin 4.1 g/dL (1.7-4.1); Glucose 161 mg/dL (80-110); Lipase 50 U/L (23-300); Potassium 3.3 mmol/L (3.4-5.1); Sodium 136 mmol/L (137-145); Total Protein 7.9 g/dL (6.3-8.2)
[2022-08-27 12:38] LABS: Lactate (Lactic Acid) 1.2 mmol/L (0.7-2.1)
[2022-08-27 12:46] LABS: HEMOLYSIS 57 (0-50); Troponin I 0.019 ng/mL (0.01-0.034)
== END 2022-08-27 15:04 | disposition home or self-care (01) ==
PROVIDERS: Emergency Provider Emergency Medicine
DX: R19.7 Diarrhea, unspecified (principal); R53.1 Weakness
CPT/HCPCS: 36415; 71045; 80053; 82550; 83605; 83690; 84484; 85025; 96360; 99284

== ENCOUNTER 2023-09-13 14:53 | Emergency (ER) | payer MEDICARE, MEDICAID, SELFPAY ==
[2021-01-13 14:22] VITALS: BMI 30.9
[2023-09-13] VITALS (10 sets, daily range): BP systolic 153–187; BP diastolic 88–125; PULSE 82–104; RESP 16–20; TEMP 36.4; O2SAT 93–98; BMI 29.2
--- NOTE | 2023-09-13 15:07 | DI.RAD.S_ITS ---
PROCEDURE: XR CHEST 1V INDICATIONS: Shortness of breath TECHNIQUE: One view of the chest was acquired. COMPARISON: [facility], CR, XR CHEST 1V, 08/27/2022, 11:43. FINDINGS: Surgical changes and devices: None. Lungs and pleura: Subtle changes of interstitial pulmonary edema. No pleural effusions or pneumothorax. Mediastinum: Mediastinal contours appear normal. Interval increase in cardiomegaly. Bones and chest wall: No suspicious bony lesions. Overlying soft tissues appear unremarkable. IMPRESSION: Congestive heart failure. Dictated by: Catracho Sandy M.D. on 09/13/2023 at 15:37 Approved by: Catracho Sandy M.D. on 09/13/2023 at 15:39
[2023-09-13 15:36] LABS: Lactate (Lactic Acid) 2.2 mmol/L (0.7-2.1)
[2023-09-13 15:37] LABS: Alanine Aminotransferase 57 IU/L (<35); Albumin 3.9 g/dL (3.5-5.0); Alkaline Phosphatase 125 U/L (38-126); Aspartate Aminotransferase 63 IU/L (14-36); BUN Creatinine Ratio 21.3 (6-22); Bilirubin Total 0.8 mg/dL (0.2-1.3); Blood Urea Nitrogen 17 mg/dL (7-17); Calcium 9.3 mg/dL (8.4-10.2); Carbon Dioxide 28 mmol/L (22-32); Chloride 100 mmol/L (98-107); Estimated Glomerular Filt Rate > 60 mL/min (>60); Glucose 387 mg/dL (80-110); HEMOLYSIS < 15 (0-50); Potassium 4.2 mmol/L (3.4-5.1); Sodium 134 mmol/L (137-145); Total Protein 7.9 g/dL (6.3-8.2)
[2023-09-13 15:43] LABS: INR 1.2 (0.9-1.3); Prothrombin Time 13.8 SECONDS (9.4-12.5)
[2023-09-13 15:48] LABS: NT-proBNP (BNP-Adult 18+) 19300 pg/mL (<125); Troponin I 0.041 ng/mL (0.01-0.034)
[2023-09-13 15:53] LABS: Hematocrit 38.8 % (36-46); Hemoglobin 13.1 g/dL (12.0-16.0); Mean Corpuscular HGB Conc 33.8 % (30-36); Mean Corpuscular Hemoglobin 29.8 PG (26-34); Mean Corpuscular Volume 88.1 fL (80-100); Platelet Count 182 X10^3/uL (150-400); Red Blood Cell Count 4.41 X10^6/uL (4.0-5.2); Red Cell Distribution Width 14.2 % (11.6-14.8); White Blood Cell Count 7.8 X10^3/uL (4.5-11.0)
[2023-09-13 16:01] LABS: Add Manual Diff / Slide Review YES
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
[2023-09-13 16:26] LABS: Neutrophils Absolute Manual 4758 /uL (3000-5900); RBC Morphology Normal Morphology; Total Cells Counted 100
[2023-09-13] MEDS: ASPIRIN 81 MG CHEW TAB 324 MG PO (16:50)
[2023-09-13] MEDS: FUROSEMIDE 40 MG/4 ML VIAL IV (16:52)
[2023-09-13 17:02] LABS: Reflexed Lactate in 2 Hours Y
[2023-09-13 17:43] LABS: Lactate 2HR (Lactic Acid Rflx) 2.1 mmol/L (0.7-2.1)
[2023-09-13 17:56] LABS: Troponin I 0.043 ng/mL (0.01-0.034)
== END 2023-09-13 18:21 | disposition home or self-care (01) ==
PROVIDERS: Emergency Provider Emergency Medicine
DX: I11.0 Hypertensive heart disease with heart failure (principal); I50.9 Heart failure, unspecified; F17.200 Nicotine dependence, unspecified, uncomplicated
CPT/HCPCS: 36415; 71045; 80053; 83605; 83880; 84484; 85007; 85025; 85610; 93005; 93010; 96374; 99284; J1940

== ENCOUNTER 2023-10-11 14:16 | Emergency (ER) | payer MEDICARE, MEDICAID, SELFPAY ==
[2021-01-13 14:22] VITALS: BMI 30.9
[2023-10-11] VITALS (9 sets, daily range): BP systolic 104–191; BP diastolic 72–108; PULSE 81–91; RESP 22–32; TEMP 36.7; O2SAT 95–98; BMI 30.9
--- NOTE | 2023-10-11 14:23 | DI.RAD.S_ITS ---
PROCEDURE: XR CHEST 1V INDICATIONS: chest pain TECHNIQUE: One view of the chest was acquired. COMPARISON: [facility], , XR CHEST 1V, 09/13/2023, 15:24. FINDINGS: Surgical changes and devices: None. Lungs and pleura: Lungs are clear. No pleural effusions or pneumothorax. Mediastinum: Mediastinal contours appear normal. Heart size enlarged Bones and chest wall: No suspicious bony lesions. Overlying soft tissues appear unremarkable. IMPRESSION: Cardiomegaly without significant vascular congestion Approved by: Dmitriy Sams M.D. on 10/11/2023 at 15:53
[2023-10-11 14:42] LABS: Add Manual Diff / Slide Review NO; Basophils Absolute Auto 100 /uL (0-100); Basophils Percent Auto 1.3 % (0-2); Eosinophils Absolute Auto 100 /uL (0-450); Eosinophils Percent Auto 1.4 % (2-4); Hematocrit 40.3 % (36-46); Hemoglobin 13.4 g/dL (12.0-16.0); Lymphocytes Absolute Auto 2100 /uL (1100-4500); Lymphocytes Percent Auto 24.2 % (25-40); Mean Corpuscular HGB Conc 33.3 % (30-36); Mean Corpuscular Hemoglobin 29.4 PG (26-34); Mean Corpuscular Volume 88.5 fL (80-100); Monocytes Absolute Auto 700 /uL (0-900); Monocytes Percent Auto 7.6 % (3-14); Neutrophils Absolute Auto 5700 /uL (1500-7000); Neutrophils Percent Auto 65.5 % (50-75); Platelet Count 157 X10^3/uL (150-400); Red Blood Cell Count 4.55 X10^6/uL (4.0-5.2); Red Cell Distribution Width 14.6 % (11.6-14.8); White Blood Cell Count 8.7 X10^3/uL (4.5-11.0)
[2023-10-11 14:49] LABS: INR 1.3 (0.9-1.3); Prothrombin Time 14.9 SECONDS (9.4-12.5)
--- NOTE | 2023-10-11 14:49 | ED_ITS ---
HPI - General Adult General Chief complaint: Shortness of Breath/Dyspnea Stated complaint: swelling and pain in feet; left arm pain Time Seen by Provider: 10/11/23 14:26 Source: patient Mode of arrival: Ambulatory History of Present Illness HPI narrative: Patient is a 68-year-old female. Has chronic multiple medical problems. Was seen here in the emergency department approximately 1 month ago for lower extremity swelling. Was diagnosed with heart failure. Discharged home on Lasix 20 mg a day. The rest of her medications were filled at that time as well. States she has been taking her medications as directed. She states she continues to have lower extremity swelling. She did have left arm discomfort last evening but nothing today. Has had some shortness of breath. No cough. Also expresses subjective fevers. No abdominal tenderness or nausea or vomiting. She is not had a follow-up with the primary doctor since being seen here in the emergency department. Related Data Home Medications Medication Instructions Recorded Confirmed insulin glargine 100 unit/mL 30 unit SUBCUT QPM 01/13/21 01/13/21 subcutaneous solution (Lantus U-100 Insulin) insulin lispro 100 unit/mL 8 unit SUBCUT TID 01/13/21 01/13/21 subcutaneous solution Previous Rx's Medication Instructions Recorded nebulizer and compressor #1 ea 01/15/21 albuterol sulfate 90 mcg/actuation 2 inh inhalation Q6H PRN shortness 09/13/23 breath activated powder inhaler of breath or wheezing #1 ea dulaglutide 0.75 mg/0.5 mL 0.75 mg (0.5 mL) SUBCUT QWEEK #1 mL 09/13/23 subcutaneous pen injector (Trulicity) furosemide 20 mg tablet (Lasix) 20 mg PO DAILY #14 tabs 09/13/23 lisinopril 20 mg tablet 20 mg PO DAILY #14 tabs 09/13/23 metoprolol succinate 25 mg 12.5 mg (1/2 x 25 mg) PO BID #28 09/13/23 tablet,extended release 24 hr tabs furosemide 20 mg tablet (Lasix) 40 mg (2 x 20 mg) PO DAILY #60 tabs 10/11/23 Allergies Allergy/AdvReac Type Severity Reaction Status Date / Time codeine Allergy Verified 09/13/23 15:02 cortisone Allergy Verified 09/13/23 15:02 hydromorphone [From Dilaudid] Allergy Verified 09/13/23 15:02 Review of Systems Review of Systems ROS Unobtainable: All systems reviewed & are unremarkable except as noted in HPI and below Cardiovascular Cardiovascular: Reports system reviewed and no additional complaints, except as documented Respiratory Respiratory: Reports system reviewed and no additional complaints, except as documented Patient History Medical History COPD (chronic obstructive pulmonary disease) Diabetes IV drug user Methamphetamine use Surgical History Status post surgery (02/09/10) Family History Mother Diabetes mellitus Father Congestive heart failure Social History household members: none Smoking Status: Current every day smoker Smoking Status: Current every day smoker tobacco type: cigarettes alcohol intake frequency: holidays/special occasions only Substance Use Type: former substance user Exam Initial Vital Signs Initial Vital Signs: Vital Signs Temperature 98.1 F 10/11/23 14:19 Pulse Rate 91 H 10/11/23 14:19 Respiratory Rate 22 10/11/23 14:19 Blood Pressure 104/80 10/11/23 14:19 Pulse Oximetry 97 10/11/23 14:19 Oxygen Delivery Method Room Air 10/11/23 14:19 HENAZ Head: normal to inspection and normocephalic Resp Effort & Inspection: normal respiratory effort Auscultation: clear to auscultation bilaterally Cardio Rate: regular rate Rhythm: regular rhythm GI Inspection: normal to inspection and non-distended Skin General: no rashes or lesions noted Neuro General: patient alert, patient awake and moves all extremities Extrem General: edema Course Orders Ordered: ED Orders 10/11/23 14:23 Consult to PROGRAM RESEARCH SPECIALIST - Client Care Specialist Stat XR chest 1V Stat 10/11/23 14:32 Complete Blood Count AUTO DIFF Stat Comprehensive Metabolic Panel Stat Lipase Stat Magnesium Stat PTT Partial Thromboplastin Thierno Stat Prothrombin Time INR Stat Troponin & CK Cardiac Panel Stat 10/11/23 14:42 EKG-12 Lead Stat Vital Signs Vital signs: Vital Signs - 8 hr 10/11/23 14:19 10/11/23 14:32 10/11/23 14:34 Temperature 98.1 F Pulse Rate 91 H 88 Respiratory Rate 22 29 H Blood Pressure 104/80 191/108 H Pulse Oximetry 97 97 Oxygen Delivery Method Room Air 10/11/23 14:34 10/11/23 15:00 10/11/23 15:01 Temperature Pulse Rate 86 82 81 Respiratory Rate 32 H 27 H 27 H Blood Pressure Pulse Oximetry 98 97 96 Oxygen Delivery Method 10/11/23 15:01 10/11/23 15:30 10/11/23 15:30 Temperature Pulse Rate 85 Respiratory Rate 26 H Blood Pressure 159/87 H 164/102 H Pulse Oximetry 95 Oxygen Delivery Method 10/11/23 16:00 10/11/23 16:00 Temperature Pulse Rate 85 Respiratory Rate 29 H Blood Pressure 165/83 H Pulse Oximetry Oxygen Delivery Method Medical Decision Making Medical Records Medical records reviewed: Yes I reviewed the patient's medical records. Lab Data Lab results reviewed: Yes I reviewed the patient's lab results. 10/11/23 14:32 10/11/23 14:32 Labs: Lab Results 10/11/23 Range/Units 14:32 WBC 8.7 (4.5-11.0) X10^3/uL RBC 4.55 (4.0-5.2) X10^6/uL Hgb 13.4 (12.0-16.0) g/dL Hct 40.3 (36-46) % MCV 88.5 (80-100) fL MCH 29.4 (26-34) PG MCHC 33.3 (30-36) % RDW 14.6 (11.6-14.8) % Plt Count 157 (150-400) X10^3/uL Neut % (Auto) 65.5 (50-75) % Lymph % (Auto) 24.2 L (25-40) % [place] % (Auto) 7.6 (3-14) % Eos % (Auto) 1.4 L (2-4) % Baso % (Auto) 1.3 (0-2) % Neut # (Auto) 5700 (3323-7864) /uL Lymph # (Auto) 2100 (0980-8671) /uL [place] # (Auto) 700 (0-900) /uL Eos # (Auto) 100 (0-450) /uL Baso # (Auto) 100 (0-100) /uL PT 14.9 H (9.4-12.5) SECONDS INR 1.3 (0.9-1.3) APTT 30 (25.1-36.5) SECONDS Sodium 136 L (137-145) mmol/L Potassium 4.0 (3.4-5.1) mmol/L Chloride 102 (98-107) mmol/L Carbon Dioxide 22 (22-32) mmol/L BUN 27 H (7-17) mg/dL Creatinine 1.04 (0.52-1.04) mg/dL Estimated GFR 59 L (>60) mL/min BUN/Creatinine Ratio 26.0 H (6-22) Glucose 187 H (80-110) mg/dL Calcium 9.4 (8.4-10.2) mg/dL Magnesium 1.7 (1.6-2.3) mg/dL Total Bilirubin 0.7 (0.2-1.3) mg/dL AST 71 H (14-36) IU/L ALT 67 H (<35) IU/L Alkaline Phosphatase 125 (38-126) U/L Total Creatine Kinase 134 (30-135) U/L Troponin I 0.028 (0.01-0.034) ng/mL Total Protein 8.6 H (6.3-8.2) g/dL Albumin 4.4 (3.5-5.0) g/dL Globulin 4.2 H (1.7-4.1) g/dL Albumin/Globulin Ratio 1.0 (1.0-2.8) Lipase 125 (23-300) U/L Imaging Data Chest x-ray: My Impression: No focal pneumonia ECG Data Attestation: I personally reviewed and interpreted this ECG as follows: Interpretation: Sinus rhythm Ventricular rate 82 Normal axis Normal QRS Normal QTC No ST T wave changes MDM Narrative Medical decision making narrative: Patient does have lower extremity swelling. Clinically patient appears to be fluid overloaded. This fits her presentation today. Low suspicion for ACS. It appears that she is been off of her furosemide because she ran out of this medication. She states she is difficulty getting her medicines. She does not have a primary care doctor. She is been getting refills of her medicines from urgent cares and emergency rooms. She was seen by social work. She was given information to help with rides to medical appointments. She was given phone numbers that she can called to help establish a primary doctor. There was no indication for admission to the hospital today. She was given return precautions. She expressed understanding and agreement. Discharge Plan Departure Patient Disposition: Home Clinical Impression: CHF (congestive heart failure) Instructions: Heart Failure Activity Restrictions/Additional Instructions: It is important that you continue to take all of your medications as directed. It is also important that you make contact with the primary care doctor. Here at [facility] you can contact [phone]. This is an information lying that can help you with a establishing a primary doctor. We are going to put you on furosemide/Lasix. We are going to increase this from when you had at the last time. Please take it as directed. Return to the emergency department for new symptoms. Prescriptions: New furosemide [Lasix] 20 mg tablet 40 mg PO DAILY Qty: 60 2RF No Action Trulicity 0.75 mg/0.5 mL pen injector 0.75 mg SUBCUT QWEEK Qty: 1 0RF lisinopril 20 mg tablet 20 mg PO DAILY Qty: 14 0RF metoprolol succinate 25 mg tablet extended release 24 hr 12.5 mg PO BID Qty: 28 0RF furosemide [Lasix] 20 mg tablet 20 mg PO DAILY Qty: 14 0RF albuterol sulfate 90 mcg/actuation aerosol powdr breath activated 2 inh inhalation Q6H PRN (Reason: shortness of breath or wheezing) Qty: 1 0RF Lantus U-100 Insulin 100 unit/mL solution 30 unit SUBCUT QPM insulin lispro 100 unit/mL solution 8 unit SUBCUT TID (DME) nebulizer and compressor Device See Rx Instructions .ROUTE .MEDSUPPLY Qty: 1 0RF Rx Instructions: One nebulizer and compressor for COPD management Referrals: Miscellaneous,Doctor, MD [Primary Care Provider] - Stand Alone Forms: Patient Portal/API
[2023-10-11 14:51] LABS: PTT Partial Thromboplastin Tim 30 SECONDS (25.1-36.5)
[2023-10-11 14:54] LABS: Alanine Aminotransferase 67 IU/L (<35); Albumin 4.4 g/dL (3.5-5.0); Alkaline Phosphatase 125 U/L (38-126); Aspartate Aminotransferase 71 IU/L (14-36); Bilirubin Total 0.7 mg/dL (0.2-1.3); Blood Urea Nitrogen 27 mg/dL (7-17); Calcium 9.4 mg/dL (8.4-10.2); Carbon Dioxide 22 mmol/L (22-32); Chloride 102 mmol/L (98-107); Creatine Kinase 134 U/L (30-135); Estimated Glomerular Filt Rate 59 mL/min (>60); Globulin 4.2 g/dL (1.7-4.1); Glucose 187 mg/dL (80-110); HEMOLYSIS 32 (0-50); Lipase 125 U/L (23-300); Magnesium 1.7 mg/dL (1.6-2.3); Sodium 136 mmol/L (137-145); Total Protein 8.6 g/dL (6.3-8.2)
[2023-10-11 15:05] LABS: Troponin I 0.028 ng/mL (0.01-0.034)
--- NOTE | 2023-10-11 16:43 | CM.SWNOTE ---
SOCIAL WORK NOTE 16:00 Pt is a 68yo female who is seen in the ED for medical concerns. SW consult placed as pt noting difficulty with transportation and accessing medical care. SW met with pt at bedside. she notes that she [place] mile away from the bus stop and has difficulty accessing rides. Discussed [facility] [employer] [facility] and pt indicates she is in the process of signing up for Paratransit services. Pt given information regarding Medicaid transport via [facility]. Pt also does not have a PCP and is given a list of PCP clinics in [place]. Pt denies any other needs at this time. Plan: pt pending medical clearance. anticipate discharge home by PCP. Lydia Zavala, DIESEL MECHANIC, SENIOR SALES DIRECTOR
== END 2023-10-11 17:10 | disposition home or self-care (01) ==
PROVIDERS: Emergency Provider Emergency Medicine
DX: I50.9 Heart failure, unspecified (principal); R60.9 Edema, unspecified; R07.9 Chest pain, unspecified
CPT/HCPCS: 36415; 71045; 80053; 82550; 83690; 83735; 84484; 85025; 85610; 85730; 93005; 93010; 99283; 99284

== ENCOUNTER 2024-02-17 09:54 | Emergency (ER) | payer MEDICARE, MEDICAID, SELFPAY ==
[2021-01-13 14:22] VITALS: BMI 30.9
[2024-02-17 10:02] VITALS: BP 209/128; PULSE 98; O2SAT 97
[2024-02-17 10:05] VITALS: BP 209/128; PULSE 90; RESP 20; TEMP 37.2; O2SAT 94; BMI 34.3
--- NOTE | 2024-02-17 10:13 | ED.GENADULT ---
HPI - General Adult General Chief complaint: Shortness of Breath/Dyspnea Stated complaint: swelling in the face/l leg Time Seen by Provider: 02/17/24 09:57 Source: patient Mode of arrival: Ambulatory History of Present Illness HPI narrative: Patient is a 68-year-old female. History of heart failure, diabetes, hypertension who has been off of all of her medication for the past 2 months because she ran out of her medicines. She states that she was given the medications out of our emergency department here. States she was trying to find a primary doctor but has been unable to do so. States over the past several days she is noticed some puffiness in her face and swelling in her lower extremities. Denies chest pain, shortness of breath. Denies any trauma. No abdominal pain. She thinks she was just retaining fluid. Related Data Home Medications Medication Instructions Recorded Confirmed insulin glargine 100 unit/mL 30 unit SUBCUT QPM 01/13/21 01/13/21 subcutaneous solution (Lantus U-100 Insulin) insulin lispro 100 unit/mL 8 unit SUBCUT TID 01/13/21 01/13/21 subcutaneous solution Previous Rx's Medication Instructions Recorded nebulizer and compressor #1 ea 01/15/21 albuterol sulfate 90 mcg/actuation 2 inh inhalation Q6H PRN shortness 09/13/23 breath activated powder inhaler of breath or wheezing #1 ea dulaglutide 0.75 mg/0.5 mL 0.75 mg (0.5 mL) SUBCUT QWEEK #1 mL 09/13/23 subcutaneous pen injector (Trulicity) furosemide 20 mg tablet (Lasix) 20 mg PO DAILY #14 tabs 09/13/23 lisinopril 20 mg tablet 20 mg PO DAILY #14 tabs 09/13/23 metoprolol succinate 25 mg 12.5 mg (1/2 x 25 mg) PO BID #28 09/13/23 tablet,extended release 24 hr tabs furosemide 20 mg tablet (Lasix) 40 mg (2 x 20 mg) PO DAILY #60 tabs 10/11/23 albuterol sulfate 90 mcg/actuation 2 puff inhalation Q6H PRN 02/17/24 aerosol inhaler shortness of breath or wheezing #8.5 grams dulaglutide 0.75 mg/0.5 mL 0.75 mg (0.5 mL) SUBCUT QWEEK #1 mL 02/17/24 [facility] furosemide 20 mg tablet (Lasix) 40 mg (2 x 20 mg) PO BID #120 tabs 02/17/24 lisinopril 20 mg tablet 20 mg PO DAILY #30 tabs 02/17/24 metoprolol succinate 25 mg 12.5 mg (1/2 x 25 mg) PO BID #30 02/17/24 tablet,extended release 24 hr tabs Allergies Allergy/AdvReac Type Severity Reaction Status Date / Time codeine Allergy Verified 09/13/23 15:02 cortisone Allergy Verified 09/13/23 15:02 hydromorphone [From Dilaudid] Allergy Verified 09/13/23 15:02 Review of Systems Review of Systems ROS Unobtainable: All systems reviewed & are unremarkable except as noted in HPI and below Patient History Medical History COPD (chronic obstructive pulmonary disease) Diabetes IV drug user Methamphetamine use Surgical History Status post surgery (02/09/10) Family History Mother Diabetes mellitus Father Congestive heart failure Social History household members: none Smoking Status: Current every day smoker Smoking Status: Current every day smoker tobacco type: cigarettes alcohol intake frequency: holidays/special occasions only Substance Use Type: former substance user Exam Initial Vital Signs Initial Vital Signs: Vital Signs Pulse Rate 98 H 02/17/24 10:02 Blood Pressure 209/128 H 02/17/24 10:02 Pulse Oximetry 97 02/17/24 10:02 HENMT Head: normal to inspection and normocephalic Face and sinus: normal facial exam Resp Effort & Inspection: normal respiratory effort Auscultation: clear to auscultation bilaterally Cardio Rate: regular rate Rhythm: regular rhythm Skin General: no rashes or lesions noted Neuro General: patient alert, patient awake, patient oriented x3 and moves all extremities Extrem General: edema Course Orders Ordered: Discontinued Medications Furosemide (Furosemide 20 Mg Tablet) 80 mg PO NOW ONE Stop: 02/17/24 10:14 Last Admin: 02/17/24 10:20 Dose: 80 mg Documented By: NATALIO Lisinopril (Lisinopril 20 Mg Tablet) 20 mg PO NOW ONE Stop: 02/17/24 10:14 Last Admin: 02/17/24 10:20 Dose: 20 mg Documented By: NATALIO Vital Signs Vital signs: Vital Signs - 8 hr 02/17/24 10:02 02/17/24 10:02 02/17/24 10:05 Temperature 98.9 F Pulse Rate 98 H 90 Respiratory Rate 20 Blood Pressure 209/128 H 209/128 H Pulse Oximetry 97 94 Oxygen Delivery Method Room Air 02/17/24 10:15 02/17/24 10:20 02/17/24 10:30 Temperature Pulse Rate 88 98 H 85 Respiratory Rate 26 H 26 H Blood Pressure 209/128 H Pulse Oximetry 96 96 Oxygen Delivery Method 02/17/24 10:30 02/17/24 10:45 Temperature Pulse Rate 83 Respiratory Rate 26 H Blood Pressure 181/113 H Pulse Oximetry 96 Oxygen Delivery Method Medical Decision Making Lab Data Lab results reviewed: Yes I reviewed the patient's lab results. Labs: Point of Care Testing Glucose POC 276 Point of care testing: Point of Care Testing Glucose POC 276 MDM Narrative Medical decision making narrative: Patient is well-appearing. She does have bilateral lower extremity edema. She was also hypertensive. No chest pain, no shortness of breath. She has been off of all of her medicines for 2 months. She was given her lisinopril and her blood pressure did improve. She was also given Lasix. I did refill her prescriptions. Advised that she does need to follow-up with a primary care doctor and she was given information to help establish a primary doctor. No indication for admission to the hospital today based on her history and physical exam. Will discharge patient home. Discharge Plan Departure Patient Disposition: Home Clinical Impression: Congestive heart failure, Hypertension, Edema, peripheral Instructions: DI for Peripheral Edema -- Bilateral Activity Restrictions/Additional Instructions: Continue to take all of your medications as directed. It is important that you follow-up with the primary care doctor. You can contact [phone]. If you contact them during business hours Monday through Monday they can help you establish a primary provider. Return to the emergency department for new symptoms. Prescriptions: New furosemide [Lasix] 20 mg tablet 40 mg PO BID Qty: 120 0RF albuterol sulfate 90 mcg/actuation HFA aerosol inhaler 2 puff inhalation Q6H PRN (Reason: shortness of breath or wheezing) Qty: 8.5 2RF lisinopril 20 mg tablet 20 mg PO DAILY Qty: 30 2RF metoprolol succinate 25 mg tablet extended release 24 hr 12.5 mg PO BID Qty: 30 2RF Trulicity 0.75 mg/0.5 mL pen injector 0.75 mg SUBCUT QWEEK Qty: 1 5RF No Action Trulicity 0.75 mg/0.5 mL pen injector 0.75 mg SUBCUT QWEEK Qty: 1 0RF lisinopril 20 mg tablet 20 mg PO DAILY Qty: 14 0RF metoprolol succinate 25 mg tablet extended release 24 hr 12.5 mg PO BID Qty: 28 0RF furosemide [Lasix] 20 mg tablet 20 mg PO DAILY Qty: 14 0RF albuterol sulfate 90 mcg/actuation aerosol powdr breath activated 2 inh inhalation Q6H PRN (Reason: shortness of breath or wheezing) Qty: 1 0RF furosemide [Lasix] 20 mg tablet 40 mg PO DAILY Qty: 60 2RF Lantus U-100 Insulin 100 unit/mL solution 30 unit SUBCUT QPM insulin lispro 100 unit/mL solution 8 unit SUBCUT TID (DME) nebulizer and compressor Device See Rx Instructions .ROUTE .MEDSUPPLY Qty: 1 0RF Rx Instructions: One nebulizer and compressor for COPD management Referrals: Miscellaneous,Doctor, MD [Primary Care Provider] - Stand Alone Forms: Patient Portal/API
[2024-02-17 10:15] VITALS: PULSE 88; RESP 26; O2SAT 96
[2024-02-17 10:20] VITALS: BP 209/128; PULSE 98
[2024-02-17] MEDS: lisinopriL 20 MG TABLET PO (10:20)
[2024-02-17] MEDS: FUROSEMIDE 20 MG TABLET 80 MG PO (10:20)
[2024-02-17 10:30] VITALS: BP 181/113; PULSE 85; RESP 26; O2SAT 96
[2024-02-17 10:45] VITALS: PULSE 83; RESP 26; O2SAT 96
== END 2024-02-17 11:11 | disposition home or self-care (01) ==
PROVIDERS: Emergency Provider Emergency Medicine
DX: I11.0 Hypertensive heart disease with heart failure (principal); I50.9 Heart failure, unspecified; F17.210 Nicotine dependence, cigarettes, uncomplicated
CPT/HCPCS: 82962; 99283

== ENCOUNTER 2024-02-26 07:41 | Observation (INO) | payer MEDICARE, MEDICAID, SELFPAY ==
[2021-01-13 14:22] VITALS: BMI 30.9
[2024-02-26] VITALS (34 sets, daily range): BP systolic 131–190; BP diastolic 73–114; PULSE 63–82; RESP 16–29; TEMP 36.2–37.2; O2SAT 90–99; BMI 28.0
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
--- NOTE | 2024-02-26 07:56 | DI.CT.S_ITS ---
PROCEDURE: CT KIDNEY URETER BLADDER (KUB) INDICATIONS: Right flank pain, suspect stone TECHNIQUE: Axial sections were acquired from the lung bases to the pubic symphysis. Coronal and sagittal reformats were performed. For radiation dose reduction, the following was used: automated exposure control, adjustment of mA and/or kV according to patient size. COMPARISON: [facility], CT, ABDOMEN WITH AND WITHOUT CONTR, 02/28/2008, 10:35. FINDINGS: Image quality: Diagnostic. Lower Chest: No significant findings. URINARY: Right Kidney: No obstructing stones or hydronephrosis. Right Ureter: No hydroureter. Left Kidney: No obstructing stones or hydronephrosis. Fat containing lesion in midpole left kidney anterolateral cortex is seen measures 2.2 x 2.3 cm in size. Left Ureter: No hydroureter. Bladder: Normal wall thickness. No stones. Phleboliths are noted in lower pelvis. ABDOMEN: Liver: Nodular liver contour is seen. No discrete solid appearing hepatic lesion. Gallbladder: Gallbladder is surgically absent. Biliary ducts: No biliary dilation. Pancreas: No ductal dilation. Spleen: Size is within normal limits. Adrenal Glands: No adrenal nodules. Stomach and Bowel: There is no bowel obstruction. No abnormal bowel wall thickening or mesenteric fat stranding. Mild fecal stasis in the colon is seen. Sigmoid diverticulosis is noted without colonic wall thickening or mesenteric fat stranding. No abscess collection. Peritoneum: No abnormal intraperitoneal fluid. No free air. Ventral Wall: No hernia. Abdominal Nodes: No enlarged retroperitoneal or mesenteric lymph nodes. Vessels: Aorta and inferior vena cava are normal in size. PELVIS: Pelvic Organs: Unremarkable. Pelvic Nodes: Unremarkable. Miscellaneous: No inguinal hernias are seen. Bones: No suspicious bony lesions. No acute vertebral body compression fracture. IMPRESSION: 1. No obstructing stones or hydronephrosis. No hydroureter. No gross abnormality is seen in urinary bladder. 2. No acute inflammatory process is seen in abdomen or pelvis. No free fluid or free air. Mild constipation. 3. Nodular liver contour which could indicate cirrhosis suggest clinical correlation. Prior cholecystectomy. 4. 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 Dictated by: Leonel Addison M.D. on 02/26/2024 at 8:10 Approved by: Leonel Addison M.D. on 02/26/2024 at 8:18
--- NOTE | 2024-02-26 08:40 | PC.NURSE ---
This RN attempted IV in right antecubital and recieved blood for one vial and then it stopped flowing. This RN attempted to flush the line and line infiltrated and was pulled. This RN asked charge if they could attempt ultrasound IV.
--- NOTE | 2024-02-26 08:44 | PC.NURSE ---
Attempt at US guided IV in left upper arm failed. I was able to obtain blood but it infiltrated when I flushed the IV. IV removed and Wrapped with coban. Dr. Johnson at bedside looking and attempting US guided IV.
[2024-02-26 08:50] LABS: Add Manual Diff / Slide Review NO; Basophils Absolute Auto 100 /uL (0-100); Basophils Percent Auto 1.3 % (0-2); Eosinophils Absolute Auto 200 /uL (0-450); Eosinophils Percent Auto 1.9 % (2-4); Hematocrit 40.5 % (36-46); Hemoglobin 13.6 g/dL (12.0-16.0); Lymphocytes Absolute Auto 2000 /uL (1100-4500); Lymphocytes Percent Auto 24.2 % (25-40); Mean Corpuscular HGB Conc 33.5 % (30-36); Mean Corpuscular Hemoglobin 29.9 PG (26-34); Mean Corpuscular Volume 89.2 fL (80-100); Monocytes Absolute Auto 700 /uL (0-900); Monocytes Percent Auto 8.4 % (3-14); Neutrophils Absolute Auto 5300 /uL (1500-7000); Neutrophils Percent Auto 64.2 % (50-75); Platelet Count 158 X10^3/uL (150-400); Red Blood Cell Count 4.54 X10^6/uL (4.0-5.2); Red Cell Distribution Width 14.6 % (11.6-14.8); White Blood Cell Count 8.2 X10^3/uL (4.5-11.0)
[2024-02-26] MEDS: KETOROLAC 30 MG/ML VIAL 15 MG IV (08:50)
[2024-02-26] MEDS: ONDANSETRON 4 MG/2 ML INJ IV (08:51)
[2024-02-26] MEDS: MORPHINE 4 MG/ML INJ IV (08:51)
--- NOTE | 2024-02-26 08:52 | PC.NURSE ---
Dr. Johnson placed ultrasound IV cath in patient upper arm.
[2024-02-26 09:01] LABS: Alanine Aminotransferase 84 IU/L (<35); Albumin 4.4 g/dL (3.5-5.0); Albumin Globulin Ratio 1.1 (1.0-2.8); Alkaline Phosphatase 164 U/L (38-126); Aspartate Aminotransferase 100 IU/L (14-36); BUN Creatinine Ratio 34.5 (6-22); Bilirubin Total 0.8 mg/dL (0.2-1.3); Blood Urea Nitrogen 39 mg/dL (7-17); Carbon Dioxide 37 mmol/L (22-32); Chloride 96 mmol/L (98-107); Estimated Glomerular Filt Rate 54 mL/min (>60); Globulin 4.1 g/dL (1.7-4.1); Glucose 226 mg/dL (80-110); HEMOLYSIS 89 (0-50); Sodium 136 mmol/L (137-145); Total Protein 8.5 g/dL (6.3-8.2)
[2024-02-26 09:09] LABS: NT-proBNP (BNP-Adult 18+) 11400 pg/mL (<125)
--- NOTE | 2024-02-26 09:37 | DI.RAD.S_ITS ---
PROCEDURE: XR CHEST 1V INDICATIONS: dyspnea TECHNIQUE: One view of the chest was acquired. COMPARISON: [facility], CR, XR CHEST 1V, 09/13/2023, 15:24. [facility], CT, CT KIDNEY URETER BLADDER (KUB), 02/26/2024, 8:03. [facility], CR, XR CHEST 1V, 10/11/2023, 14:35. FINDINGS: Surgical changes and devices: None. Lungs and pleura: Lungs are clear. No pleural effusions or pneumothorax. Mediastinum: Mediastinal contours appear normal. Cardiomegaly. Bones and chest wall: No suspicious bony lesions. Overlying soft tissues appear unremarkable. IMPRESSION: Cardiomegaly. No acute pulmonary process. Dictated by: Catracho Sandy M.D. on 02/26/2024 at 10:14 Approved by: Catracho Sandy M.D. on 02/26/2024 at 10:15
[2024-02-26] MEDS: ALBUTEROL/IPRATROPIUM 3 ML AMPUL INH (09:44)
[2024-02-26 09:53] LABS: Lipase 108 U/L (23-300)
[2024-02-26] MEDS: MORPHINE 2 MG/ML INJ IV (09:55)
[2024-02-26] MEDS: FUROSEMIDE 80 MG in SODIUM CHLORIDE 0.9% 50 ML 116 MG IV (09:56)
[2024-02-26 10:06] LABS: Troponin I 0.032 ng/mL (0.01-0.034)
[2024-02-26] MEDS: METOPROLOL IR 25 MG TABLET PO (10:54)
[2024-02-26] MEDS: MAGNESIUM SULFATE 2 GM/50 ML PIGGYBACK IV (10:54)
[2024-02-26] MEDS: methylPREDNISolone 125 MG/2 ML VIAL 60 MG IV (10:54)
[2024-02-26] MEDS: lisinopriL 20 MG TABLET PO ×2 (10:54→14:13)
--- NOTE | 2024-02-26 11:09 | PC.NURSE ---
This Patient had a run of V-tach at 10:13 and this RN immediately responded to patient room. Patient alert and orientated and denies any chest pain. This RN immediately went to monitor and printed rhythm strip and gave it to provider.
[2024-02-26 11:11] LABS: Hemoglobin A1C% w Est Avg Glu 11.5 % (4.0-6.0)
[2024-02-26 11:35] LABS: Ur Creatinine Normal (Normal); Ur Specific Gravity Normal (Normal); Urine Cocaine Negative (Negative); Urine Tetrahydrocannabinol Negative (Negative); Urine pH Normal (Normal)
[2024-02-26 11:36] LABS: UR Morphine/Opiate cutoff 300 Negative (Negative); Urine Amphetamines Positive (Negative); Urine Barbiturates Negative (Negative); Urine Benzodiazepines Negative (Negative); Urine MDMA Negative (Negative); Urine Methadone Negative (Negative); Urine Methamphetamines Positive (Negative); Urine Oxycodone Negative (Negative); Urine Phencyclidine Negative (Negative); Urine Tricyclic Antidepressant Negative (Negative)
--- NOTE | 2024-02-26 13:22 | P.HP_ITS ---
History of Present Illness History of Present Illness Date Patient Seen: 02/26/24 Time Patient Seen: 13:51 Chief complaint: kidney pain Narrative: The patient is a 68-year-old female with history of heart failure, diabetes, and hypertension. She has been out of her medications for about 2 months. She presented to the ED with right flank pain this morning. She denies recent fevers, or urinary symptoms including dysuria or hematuria. She does have a history of kidney stones. In the emergency department CT scan was obtained to rule out kidney stones or obstruction and this was negative. She was found to be wheezing and have evidence of acute heart failure and possible COPD exacerbation. Her last echo was in 2020 with an LVEF of 45-50%. She was a little bit of a vague historian but notes that she has been out of some of her medications for a couple of weeks. She cites not having a car to get to the pharmacy. She has been off her Trulicity. She does continue to smoke several cigarettes a day. She denies any chest pain, or orthopnea. She did have some leg swelling a week ago but denies this now. She still has been taking some Lasix at home. She denies taking any methamphetamines recently although her urine tox is positive. She also denies alcohol use. She has not had any cold symptoms recently including rhinorrhea, cough or sore throat. She has an albuterol MDI at home but prefers a formulation with powder. She requests that this be sent to [facility] in [place] before she leaves tomorrow morning. She has an A1c of over 11. She also notes that she has not have a primary care provider and needs assistance in finding one. COUNTS INCLUDE 234 BEDS AT THE [facility] Medical History COPD (chronic obstructive pulmonary disease) Diabetes IV drug user Methamphetamine use Surgical History Status post surgery (02/09/10) Family History Mother Diabetes mellitus Father Congestive heart failure Social History household members: significant other Smoking Status: Current every day smoker alcohol intake: never Meds Home Medications and Allergies Home Medications Medication Instructions Recorded Confirmed Type nebulizer and compressor #1 ea 03/26/21 Rx albuterol sulfate 90 mcg/actuation 2 inh inhalation Q6H PRN shortness 09/13/23 02/26/24 Rx breath activated powder inhaler of breath or wheezing #1 ea dulaglutide 0.75 mg/0.5 mL 0.75 mg (0.5 mL) SUBCUT QWEEK #1 mL 09/13/23 02/26/24 Rx subcutaneous pen injector (Trulicity) lisinopril 20 mg tablet 20 mg PO DAILY #14 tabs 09/13/23 02/26/24 Rx metoprolol succinate 25 mg 12.5 mg (1/2 x 25 mg) PO BID #28 09/13/23 02/26/24 Rx tablet,extended release 24 hr tabs albuterol sulfate 90 mcg/actuation 1 inh inhalation Q4-6H PRN wheezing 02/26/24 History breath activated powder inhaler (ProAir RespiClick) diltiazem HCl 240 mg 240 mg PO DAILY 02/26/24 History capsule,extended release 24 hr furosemide 20 mg tablet (Lasix) 20 mg PO BID 02/26/24 02/26/24 History Allergies Allergy/AdvReac Type Severity Reaction Status Date / Time codeine Allergy Verified 02/17/24 11:06 cortisone Allergy Verified 02/17/24 11:06 hydromorphone [From Dilaudid] Allergy Verified 02/17/24 11:06 Review of Systems Review of Systems Narrative: All else reviewed and otherwise unremarkable except as noted in the history and physical. Exam Vital Signs (past 8 hours): - 02/26/24 07:45 02/26/24 07:53 02/26/24 08:00 Temperature 97.9 F Pulse Rate 78 Respiratory Rate 17 Blood Pressure 131/73 131/73 181/92 H Pulse Oximetry 98 Oxygen Delivery Method Room Air Oxygen Flow Rate 02/26/24 08:09 02/26/24 08:12 02/26/24 08:15 Temperature Pulse Rate Respiratory Rate Blood Pressure 185/101 H 155/87 H 153/96 H Pulse Oximetry Oxygen Delivery Method Oxygen Flow Rate 02/26/24 08:15 02/26/24 08:30 02/26/24 08:48 Temperature Pulse Rate 81 79 Respiratory Rate 28 H Blood Pressure 170/97 H Pulse Oximetry Oxygen Delivery Method Oxygen Flow Rate 02/26/24 08:48 02/26/24 09:00 02/26/24 09:00 Temperature Pulse Rate 80 77 Respiratory Rate 29 H Blood Pressure 167/81 H Pulse Oximetry Oxygen Delivery Method Oxygen Flow Rate 02/26/24 09:30 02/26/24 09:44 02/26/24 09:44 Temperature Pulse Rate 79 79 Respiratory Rate 22 22 Blood Pressure 173/112 H Pulse Oximetry 93 92 Oxygen Delivery Method Room Air Oxygen Flow Rate 02/26/24 09:44 02/26/24 09:45 02/26/24 09:45 Temperature Pulse Rate 79 79 Respiratory Rate 29 H 28 H Blood Pressure 181/109 H Pulse Oximetry 92 92 Oxygen Delivery Method Room Air Room Air Oxygen Flow Rate 02/26/24 10:00 02/26/24 10:00 02/26/24 10:15 Temperature Pulse Rate 80 Respiratory Rate 22 Blood Pressure 183/114 H 173/102 H Pulse Oximetry 92 Oxygen Delivery Method Room Air Oxygen Flow Rate 02/26/24 10:15 02/26/24 10:30 02/26/24 10:30 Temperature Pulse Rate 79 81 Respiratory Rate 25 H Blood Pressure 166/100 H Pulse Oximetry 93 91 Oxygen Delivery Method Room Air Room Air Oxygen Flow Rate 02/26/24 10:45 02/26/24 10:45 02/26/24 10:54 Temperature Pulse Rate 82 79 Respiratory Rate 26 H Blood Pressure 172/98 H 172/98 H Pulse Oximetry 90 L Oxygen Delivery Method Room Air Oxygen Flow Rate 02/26/24 11:00 02/26/24 11:00 02/26/24 11:15 Temperature Pulse Rate 78 Respiratory Rate 23 Blood Pressure 166/98 H 167/100 H Pulse Oximetry 97 Oxygen Delivery Method Nasal Cannula Oxygen Flow Rate 2 02/26/24 11:15 02/26/24 11:22 02/26/24 11:22 Temperature Pulse Rate 79 81 Respiratory Rate 27 H Blood Pressure 151/97 H Pulse Oximetry 97 96 Oxygen Delivery Method Oxygen Flow Rate 02/26/24 11:30 02/26/24 11:31 02/26/24 11:31 Temperature Pulse Rate 74 75 Respiratory Rate 23 22 Blood Pressure 190/102 H Pulse Oximetry 98 99 Oxygen Delivery Method Oxygen Flow Rate 02/26/24 11:45 02/26/24 11:45 05/06/24 12:00 Temperature Pulse Rate 70 Respiratory Rate 21 Blood Pressure 178/105 H 166/104 H Pulse Oximetry 99 Oxygen Delivery Method Oxygen Flow Rate 02/26/24 12:00 02/26/24 12:15 02/26/24 12:15 Temperature Pulse Rate 67 65 Respiratory Rate 21 Blood Pressure 171/108 H Pulse Oximetry 98 99 Oxygen Delivery Method Oxygen Flow Rate 02/26/24 12:30 02/26/24 12:30 02/26/24 12:45 Temperature Pulse Rate 65 Respiratory Rate Blood Pressure 172/110 H 170/106 H Pulse Oximetry 98 Oxygen Delivery Method Oxygen Flow Rate 02/26/24 12:45 02/26/24 13:20 Temperature Pulse Rate 64 Respiratory Rate 25 H Blood Pressure Pulse Oximetry 99 96 Oxygen Delivery Method Oxygen Flow Rate 1 Oxygen Delivery Method Nasal Cannula Oxygen Flow Rate 1 Narrative Exam Narrative: NAD, alert and oriented, fluent speech, calm. Flat affect. Normocephalic skull, EOMI, anicteric sclera, symmetric pupils. Oropharynx unremarkable, no droop. Neck supple, midline trachea, no adenopathy. Lungs with good breath sounds, she is scattered expiratory wheezes and some basilar rales, normal rate and effort. Heart regular, no murmur gallop or rub. Abdomen is soft, non distended and non tender. Extremities are with 1+ edema. Skin is free of rash or lesions. Joints are not swollen or deformed. Judgment appears to be normal. Objective Imaging CT KUB:: Radiologist's impression: IMPRESSION: 1. No obstructing stones or hydronephrosis. No hydroureter. No gross abnormality is seen in urinary bladder. 2. No acute inflammatory process is seen in abdomen or pelvis. No free fluid or free air. Mild constipation. 3. Nodular liver contour which could indicate cirrhosis suggest clinical correlation. Prior cholecystectomy. 4. 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 Chest x-ray: Radiologist's impression: FINDINGS: Surgical changes and devices: None. Lungs and pleura: Lungs are clear. No pleural effusions or pneumothorax. Mediastinum: Mediastinal contours appear normal. Cardiomegaly. Bones and chest wall: No suspicious bony lesions. Overlying soft tissues appear unremarkable. IMPRESSION: Cardiomegaly. No acute pulmonary process. Labs 02/26/24 08:41 02/26/24 08:41 Labs: Laboratory Results - last 24 hr 02/26/24 02/26/24 07:50 08:41 WBC 8.2 RBC 4.54 Hgb 13.6 Hct 40.5 MCV 89.2 MCH 29.9 MCHC 33.5 RDW 14.6 Plt Count 158 Neut % (Auto) 64.2 Lymph % (Auto) 24.2 L [place] % (Auto) 8.4 Eos % (Auto) 1.9 L Baso % (Auto) 1.3 Neut # (Auto) 5300 Lymph # (Auto) 2000 [place] # (Auto) 700 Eos # (Auto) 200 Baso # (Auto) 100 Sodium 136 L Potassium 4.0 Chloride 96 L Carbon Dioxide 37 H BUN 39 H Creatinine 1.13 H Estimated GFR 54 L BUN/Creatinine Ratio 34.5 H Glucose 226 H Hemoglobin A1c 11.5 H Calcium 9.0 Total Bilirubin 0.8 AST 100 H ALT 84 H Alkaline Phosphatase 164 H Troponin I 0.032 NT-Pro-B Natriuret Pep 19259 H Total Protein 8.5 H Albumin 4.4 Globulin 4.1 Albumin/Globulin Ratio 1.1 Lipase 108 U Opiates 300ng/mL cut Negative Ur Oxycodone Screen Negative Urine Methadone Screen Negative Ur Barbiturates Screen Negative U Tricyclic Antidepress Negative Ur Phencyclidine Scrn Negative Ur Amphetamines Screen Positive H U Methamphetamines Scrn Positive H Ur MDMA Scrn (Ecstasy) Negative U Benzodiazepines Scrn Negative Urine Cocaine Screen Negative U Marijuana (THC) Screen Negative Urine pH Normal Urine Specific [place] Normal Ur Creatinine Normal Assessment & Plan Assessment & Plan narrative: 1. Acute on chronic mixed heart failure, present on admission and active. 2. Possible COPD exacerbation, present on admission and active. 3. Diabetes mellitus 2 with hyperglycemia and medication noncompliance, present on admission and active. 4. Hypertension with medication noncompliance, present on admission and active. 5. Methamphetamine abuse, present on admission and active. Plan: -we will diurese with Lasix IV q.12 hours. -she is off oxygen upon arrival to the floor. -we will place her on prednisone 40 a day to cover any component of reactive airways. -we will use Lantus and correctional lispro tonight. -we will trend cardiac enzymes. -2D echo to reassess her EF is has been several years since her last echo. She is full resuscitation. She lives with her boyfriend. Expectation of 1 midnight of hospital care, admitted to observation status. Anticipated date of discharge is February 26. Quality VTE Deep Vein Thrombosis/Pulmonary Embolism Present on Admission: No MIPS - Admit I confirm the patient?s Advance Care Plan is present, Code status is documented, Surrogate decision maker is in patient?s record [If Yes, STOP here]: Yes MIPS - Meds 'Current medications' to include all prescriptions, [id number] products, herbals, cannabis/cannabidiol products, and vitamin/mineral/dietary (nutritional) supplements. I have utilized all available resources to obtain, update, or review the patient?s current medications. [If Yes, STOP here]: Yes
--- NOTE | 2024-02-26 13:22 | DI.ECHO.S_ITS ---
[facility] : : [address] : : [place] : : [id number] : : Phone: [phone] Echocardiogram Report + + :Name: VINAYAK HERNANDEZ Study Date: 02/26/2024 Height: 65 in : :[facility] ReadingLocation: Weight: 168 lb : : Gender: Female BSA: 1.8 m2 : :: 1955 Age: 68 yrs BP: 170/106 mmHg: :Reason For Study: CONGESTIVE HEART FAILURE : :Ordering Physician: BRANDY, : :ANETTE Holden Performed By: Megan Lopez : :Referring: ANETTE NAVA : + + Interpretation Summary The ejection fraction is estimated to be 30-35%. Septum is dyskinetic, inferior wall is severely hypokinetic. The right ventricle is mildly dilated. Right ventricular systolic function is mildly reduced. The thickening of interatrial septum suggests lipomatous hypertrophy. There is no Doppler evidence for an interatrial shunt. There is moderate tricuspid regurgitation. The right ventricular systolic pressure is estimated to be at least 41 mmHg based on an estimated right atrial pressure of 15 mm Hg. Procedure: A two-dimensional transthoracic echocardiogram with color flow and Doppler was performed. The study quality was technically adequate. Comparison is made with the echocardiogram of 01/14/2021. The patient was in sinus rhythm with heart rates between 64-75 bpm during the exam. Left Ventricle: The left ventricle is normal in size and wall thickness. The ejection fraction is estimated to be 30-35%. Left ventricular function has mildly worsened compared to the previous exam. Septum is dyskinetic, inferior wall is severely hypokinetic. Right Ventricle: The right ventricle is mildly dilated. Right ventricular systolic function is mildly reduced. Atria: The left atrium is mildly dilated. The right atrium is moderately dilated. There is no Doppler evidence for an interatrial shunt. The thickening of interatrial septum suggests lipomatous hypertrophy. Mitral Valve: The mitral valve leaflets appear mildly thickened, but open well. There is mild mitral regurgitation. Aortic Valve: The aortic valve is trileaflet. The aortic valve opens well. There is no aortic valve stenosis. No aortic regurgitation is present. Tricuspid Valve: The tricuspid valve leaflets are thin and pliable. There is moderate tricuspid regurgitation. The right ventricular systolic pressure is estimated to be at least 41 mmHg based on an estimated right atrial pressure of 15 mm Hg. Pulmonic Valve: The pulmonic valve is not well visualized. There is no pulmonic valvular regurgitation. Great Vessels: The aortic root is normal size. The dimensions of the ascending aorta are normal. The IVC is dilated (diameter is greater than 2.1 cm) and it collapses less than 50% with a sniff. This suggests a high right atrial pressure of 15 mm Hg. Pericardium/ Pleura There is no pericardial effusion. There is no pleural effusion. MMode/2D Measurements & Calculations LVIDd: 5.1 cm LVOT diam: 2.1 cm LVIDs: 4.5 cm Ao root diam: 2.9 cm FS: 13.4 % asc Aorta Diam: 3.1 cm EPSS: 1.2 cm Ao Arch Diam (Prox Trans): 3.1 cm IVSd: 1.0 cm LVPWd: 1.0 cm LV [place]. diameter/BSA (cm/m^2): 2.8 LV sys. diameter/BSA (cm/m^2): 2.4 LA A2 area: 21.4 cm2 RA long axis: 6.0 cm LA A4 area: 23.0 cm2 RA area: 24.0 cm2 LA length (vol): 6.1 cm RA vol: 82.2 ml LA vol: 69.2 ml RA : 44.7 ml/m2 LA vol index: 37.7 ml/m2 IVC diam: 2.5 cm RVD1 (basal): 4.5 cm RVD2 (mid): 3.4 cm TAPSE: 1.5 cm Doppler Measurements & Calculations Ao V2 max: 107.4 cm/sec LVOT Max Jeremy: 65.5 cm/sec Ao V2 mean: 77.8 cm/sec LV V1 max P.7 mmHg Ao max P.6 mmHg LV V1 VTI: 12.2 cm Ao mean P.6 mmHg SERA(I,D): 2.0 cm2 Ao V2 VTI: 21.3 cm SERA(V,D): 2.2 cm2 sev ratio: 0.57 SERA indexed to BSA (cm^2/m^2): 1.1 MV E max jeremy: 59.4 cm/sec TR max jeremy: 259.0 cm/sec MV A max jeremy: 103.4 cm/sec TR max P.8 mmHg MV E/A: 0.57 PA V2 max: 68.2 cm/sec Med Peak E' Jeremy: 3.0 cm/sec PA V2 mean: 46.1 cm/sec E/E' med: 19.6 PA mean P.94 mmHg Lat Peak E' Jeremy: 3.8 cm/sec PA pr(Accel): 34.5 mmHg E/E' lat: 15.7 E/e' average: 17.6 MV dec time: 0.24 sec MVA(VTI): 1.3 cm2 MV V2 mean: 64.3 cm/sec SV(LVOT): 43.1 ml MV mean P.0 mmHg MV V2 VTI: 32.3 cm Reading Physician:04:17 PM
[2024-02-26] MEDS: METOPROLOL ER 25 MG TABLET 12.5 MG PO ×2 (14:13→21:12)
[2024-02-26] MEDS: INSULIN GLARGINE 100 UNIT/ML 3ML PEN 10 UNIT SUBCUT (14:13)
[2024-02-26] MEDS: HEPARIN 5,000 UNIT/ML VIAL 5000 UNIT SUBCUT ×2 (14:14→21:11)
[2024-02-26 14:26] LABS: Troponin I 0.031 ng/mL (0.01-0.034)
--- NOTE | 2024-02-26 14:41 | PC.NURSE ---
Patient given 10u of lantus insulin for blood sugar in the 200s, she ate all of her lunch. Pt denies pain at this time and is resting in her room. She denies any drug use but is postive for meth in her urine toxicology. Dr. Flowers is aware of this.
[2024-02-26] MEDS: INSULIN LISPRO 100 UNIT/ML 3ML VIAL SUBCUT ×2 (16:55→21:14)
[2024-02-26] MEDS: DOXYCYCLINE HYCLATE 100 MG TABLET PO (21:12)
[2024-02-26] MEDS: OXYCODONE IR 5 MG TABLET PO (21:12)
[2024-02-26 22:33] LABS: Troponin I 0.021 ng/mL (0.01-0.034)
[2024-02-27 00:03] VITALS: BP 148/85; PULSE 76; RESP 19; TEMP 36.3; O2SAT 92
[2024-02-27 05:24] LABS: Add Manual Diff / Slide Review NO; Basophils Absolute Auto 100 /uL (0-100); Eosinophils Absolute Auto 0 /uL (0-450); Eosinophils Percent Auto 0.4 % (2-4); Hematocrit 39.1 % (36-46); Hemoglobin 13.1 g/dL (12.0-16.0); Lymphocytes Absolute Auto 1600 /uL (1100-4500); Lymphocytes Percent Auto 14.8 % (25-40); Mean Corpuscular HGB Conc 33.4 % (30-36); Mean Corpuscular Hemoglobin 29.9 PG (26-34); Mean Corpuscular Volume 89.5 fL (80-100); Monocytes Absolute Auto 600 /uL (0-900); Monocytes Percent Auto 5.9 % (3-14); Neutrophils Absolute Auto 8100 /uL (1500-7000); Neutrophils Percent Auto 77.9 % (50-75); Platelet Count 160 X10^3/uL (150-400); Red Blood Cell Count 4.37 X10^6/uL (4.0-5.2); Red Cell Distribution Width 14.4 % (11.6-14.8); White Blood Cell Count 10.5 X10^3/uL (4.5-11.0)
[2024-02-27 05:34] VITALS: BP 142/94; PULSE 70; RESP 19; TEMP 36.4; O2SAT 94
[2024-02-27 05:35] LABS: BUN Creatinine Ratio 39.3 (6-22); Blood Urea Nitrogen 46 mg/dL (7-17); Calcium 8.5 mg/dL (8.4-10.2); Carbon Dioxide 34 mmol/L (22-32); Chloride 95 mmol/L (98-107); Estimated Glomerular Filt Rate 51 mL/min (>60); Glucose 259 mg/dL (80-110); HEMOLYSIS < 15 (0-50); Potassium 3.7 mmol/L (3.4-5.1); Sodium 133 mmol/L (137-145)
[2024-02-27] MEDS: INSULIN LISPRO 100 UNIT/ML 3ML VIAL SUBCUT ×2 (08:34→12:17)
[2024-02-27] MEDS: INSULIN GLARGINE 100 UNIT/ML 3ML PEN 10 UNIT SUBCUT (08:35)
[2024-02-27 08:41] VITALS: BP 149/87; PULSE 78
[2024-02-27] MEDS: DOXYCYCLINE HYCLATE 100 MG TABLET PO (08:41)
[2024-02-27] MEDS: lisinopriL 20 MG TABLET PO (08:41)
[2024-02-27 08:42] VITALS: BP 149/87; PULSE 78
[2024-02-27] MEDS: METOPROLOL ER 25 MG TABLET 12.5 MG PO (08:42)
[2024-02-27] MEDS: predniSONE 20 MG TABLET 40 MG PO (08:42)
[2024-02-27 08:45] VITALS: BP 149/87; PULSE 77; RESP 18; TEMP 36.1; O2SAT 93
[2024-02-27] MEDS: HEPARIN 5,000 UNIT/ML VIAL 5000 UNIT SUBCUT (08:45)
--- NOTE | 2024-02-27 10:27 | P.DS_ITS ---
History of Present Illness History of Present Illness Date Patient Seen: 02/27/24 Time Patient Seen: 10:27 Chief complaint: kidney pain Narrative: Per admitting provider, The patient is a 68-year-old female with history of heart failure, diabetes, and hypertension. She has been out of her medications for about 2 months. She presented to the ED with right flank pain this morning. She denies recent fevers, or urinary symptoms including dysuria or hematuria. She does have a history of kidney stones. In the emergency department CT scan was obtained to rule out kidney stones or obstruction and this was negative. She was found to be wheezing and have evidence of acute heart failure and possible COPD exacerbation. Her last echo was in 2020 with an LVEF of 45-50%. She was a little bit of a vague historian but notes that she has been out of some of her medications for a couple of weeks. She cites not having a car to get to the pharmacy. She has been off her Trulicity. She does continue to smoke several cigarettes a day. She denies any chest pain, or orthopnea. She did have some leg swelling a week ago but denies this now. She still has been taking some Lasix at home. She denies taking any methamphetamines recently although her urine tox is positive. She also denies alcohol use. She has not had any cold symptoms recently including rhinorrhea, cough or sore throat. She has an albuterol MDI at home but prefers a formulation with powder. She requests that this be sent to [facility] in [place] before she leaves tomorrow morning. She has an A1c of over 11. She also notes that she has not have a primary care provider and needs assistance in finding one. Discharge Providers Provider Date of admission: 02/26/24 12:22 Discharge Date: 02/27/24 Primary care physician: Doctor Lauryn MD Consults: 02/26/24 13:15 Consult to SALES AGENT FOOD VENDING SERVICE - [employer] Scarfer Tender Routine Comment: need to establish with MD 02/26/24 17:46 Consult to Cardio/Pulmonary Rehabilitation Routine Comment: Physician Instructions: Evaluate and treat Discharge provider: Michael Diaz DO Summary Hospital Course Discharge Diagnosis: 1. Acute on chronic mixed heart failure, present on admission and active. 2. Possible COPD exacerbation, present on admission and active. 3. Diabetes mellitus 2 with hyperglycemia and medication noncompliance, present on admission and active. 4. Hypertension with medication noncompliance, present on admission and active. 5. Methamphetamine abuse, present on admission and active. Hospital Course: This is a 68 year old female with PMH of systolic and diastolic heart failure, COPD, DM2, HTN, methamphetamine use history who presented with flank pain. She also reported being out of medications for a few weeks and signs of mild volume overload and heart failure exacerbation. She was started on steroids and given diuretics for presumed COPD exacerbation and heart failure exacerbation. The following morning she felt markedly improved with no symptoms. She improved much more quickly than expected. Her breathing was much improved. Echocardiogram did show reduced EF from before with inferior WMA, but with lack of chest pain and normal troponin further evaluation with outpatient cardiology is recommended. Patient reported she already had referral to cardiology as an outpatient and would call for a consultation. She was prescribed another few days of steroids on discharge, and doxycycline for COPD exacerbation. She was resumed on her previous home lasix dosing, and home medications were refilled. Patient is already on moi-inhibitor and beta matias at the time of discharge. Time Spent with Patient Time spent: Greater than 30 minutes Exam Vital Signs (past 8 hours): - 02/27/24 05:34 02/27/24 08:41 02/27/24 08:42 Temperature 97.5 F L Pulse Rate 70 78 78 Respiratory Rate 19 Blood Pressure 142/94 H 149/87 H 149/87 H Pulse Oximetry 94 Oxygen Flow Rate 02/27/24 08:45 Temperature 96.9 F L Pulse Rate 77 Respiratory Rate 18 Blood Pressure 149/87 H Pulse Oximetry 93 Oxygen Flow Rate 0 Oxygen Delivery Method Room Air Oxygen Flow Rate 0 Narrative Exam Narrative: NAD, alert and oriented, fluent speech, calm. Flat affect. Normocephalic skull, EOMI, anicteric sclera, symmetric pupils. Oropharynx unremarkable, no droop. Neck supple, midline trachea, no adenopathy. Lungs with good breath sounds, she is scattered expiratory wheezes and some basilar rales, normal rate and effort. Heart regular, no murmur gallop or rub. Abdomen is soft, non distended and non tender. Extremities with no edema Skin is free of rash or lesions. Joints are not swollen or deformed. Judgment appears to be normal. Objective Labs 02/27/24 05:13 02/27/24 05:13 Labs: Laboratory Results - last 24 hr 02/26/24 02/26/24 02/26/24 07:50 08:41 13:50 WBC RBC Hgb Hct MCV MCH MCHC RDW Plt Count Neut % (Auto) Lymph % (Auto) Traill % (Auto) Eos % (Auto) Baso % (Auto) Neut # (Auto) Lymph # (Auto) Traill # (Auto) Eos # (Auto) Baso # (Auto) Sodium Potassium Chloride Carbon Dioxide BUN Creatinine Estimated GFR BUN/Creatinine Ratio Glucose Hemoglobin A1c 11.5 H Calcium Troponin I 0.031 U Opiates 300ng/mL cut Negative Ur Oxycodone Screen Negative Urine Methadone Screen Negative Ur Barbiturates Screen Negative U Tricyclic Antidepress Negative Ur Phencyclidine Scrn Negative Ur Amphetamines Screen Positive H U Methamphetamines Scrn Positive H Ur MDMA Scrn (Ecstasy) Negative U Benzodiazepines Scrn Negative Urine Cocaine Screen Negative U Marijuana (THC) Screen Negative Urine pH Normal Urine Specific [place] Normal Ur Creatinine Normal 02/26/24 02/27/24 21:59 05:13 WBC 10.5 RBC 4.37 Hgb 13.1 Hct 39.1 MCV 89.5 MCH 29.9 MCHC 33.4 RDW 14.4 Plt Count 160 Neut % (Auto) 77.9 H Lymph % (Auto) 14.8 L Traill % (Auto) 5.9 Eos % (Auto) 0.4 L Baso % (Auto) 1.0 Neut # (Auto) 8100 H Lymph # (Auto) 1600 Traill # (Auto) 600 Eos # (Auto) 0 Baso # (Auto) 100 Sodium 133 L Potassium 3.7 Chloride 95 L Carbon Dioxide 34 H BUN 46 H Creatinine 1.17 H Estimated GFR 51 L BUN/Creatinine Ratio 39.3 H Glucose 259 H Hemoglobin A1c Calcium 8.5 Troponin I 0.021 U Opiates 300ng/mL cut Ur Oxycodone Screen Urine Methadone Screen Ur Barbiturates Screen U Tricyclic Antidepress Ur Phencyclidine Scrn Ur Amphetamines Screen U Methamphetamines Scrn Ur MDMA Scrn (Ecstasy) U Benzodiazepines Scrn Urine Cocaine Screen U Marijuana (THC) Screen Urine pH Urine Specific [place] Ur Creatinine PFSH Medical History COPD (chronic obstructive pulmonary disease) Diabetes IV drug user Methamphetamine use Surgical History Status post surgery (02/09/10) Family History Mother Diabetes mellitus Father Congestive heart failure Social History household members: significant other Smoking Status: Current every day smoker alcohol intake: never Discharge Plan Discharge Plan Patient Disposition: Home Provider Discharge Comment: You were admitted to the hospital with shortness of breath, treated for HF exacerbation and COPD exacerbation. Improved. Medication refilled. You heart function is reduced slightly from before, this should be followed up with by a wood lathe operator as an outpatient. Please call mirna after discharge to schedule follow up appointment. With the reduction in your heart function, it is recommended that you stop taking diltiazem. Discharge orders & Medications Prescriptions: New prednisone 20 mg Tablet 40 mg PO DAILY 4 Days Qty: 8 0RF doxycycline hyclate 100 mg Tablet 100 mg PO BID 3 Days Qty: 6 0RF Continued Trulicity 0.75 mg/0.5 mL pen injector 0.75 mg SUBCUT QWEEK Qty: 1 0RF Rx Instructions: takes on sundays albuterol sulfate 90 mcg/actuation aerosol powdr breath activated 2 inh inhalation Q6H PRN (Reason: shortness of breath or wheezing) Qty: 1 0RF (DME) nebulizer and compressor Device See Rx Instructions .ROUTE .MEDSUPPLY Qty: 1 0RF Rx Instructions: One nebulizer and compressor for COPD management lisinopril 20 mg tablet 20 mg PO DAILY Qty: 90 0RF metoprolol succinate 25 mg tablet extended release 24 hr 12.5 mg PO BID Qty: 90 0RF ProAir RespiClick 90 mcg/actuation aerosol powdr breath activated 1 inh INHALATION Q4-6H PRN (Reason: wheezing) Qty: 1 0RF Changed furosemide 20 mg tablet 20 mg PO BID 90 Days Qty: 180 0RF Discontinued diltiazem HCl 240 mg capsule,extended release 24hr 240 mg PO DAILY Follow up/Referrals: Miscellaneous,Doctor, [Primary Care Provider] - Diet/Activity/Treatments Diet: Diet as Tolerated and Low-sodium Activity: As tolerated, no restrictions Visit Report/Discharge Packet Stand Alone Forms: Patient Portal/API, Stroke Signs & Symptoms Discharge Data Primary Care Provider: Lauryn,Doctor Attending Provider: Kahlil Flowers Admit Date/Time: 02/26/24 12:22 Quality VTE Deep Vein Thrombosis/Pulmonary Embolism Present on Admission: No MIPS - DC The patient has a history of heart transplant or Left Ventricular Assist Device (LVAD). If yes, STOP here.: No The patient has current or prior documentation of left ventricular ejection fraction (LVEF) less than or equal to 40%, or moderate or severely depressed left ventricular systolic function.: Yes A. The patient was prescribed or already taking an Angiotensin-Converting Enzyme (MOI) Inhibitor, or Angiotensin Receptor Matias (ARB).: Yes B. The patient was prescribed or already taking a beta-matias. [If Yes to Both A & B, STOP here]: Yes
[2024-02-27] MEDS: FUROSEMIDE 40 MG/4 ML VIAL IV (12:01)
--- NOTE | 2024-02-27 12:42 | CM.DANOTE ---
Initial DCP Assessment Visit Note Reviewed EMR and team rounds for status updates. Met with pt at bedside to introduce self and role. Pt was found to be getting ready to d/c back home, she expresses feeling much better since admission. This VENETIAN BLIND MACHINE OPERATOR provided her with information on how to obtain a PCP at the clinics. She declined any further d/c needs or community resource assistance. Her boyfriend will be transporting her back home. Payor: [facility] Adv PCP: No current provider Pt is a 68 year-old F with a PMH of CHF, diabetes, COPD, and hypertension. She presented to the ED yesterday with c/o R-sided flank pain, expressing that she thought she may have a kidney stone. Imaging done in the ED was negative for kidney stones, however, she was found to be wheezing. Chest x-ray was positive for cardiomegaly and showed evidence of COPD exacerbation. She was also found to have labs and exam consistent with significant heart failure. Pt states that she does not currently have a PCP, and has not had any of her meds for 2-months, due to no transportation. Today she is expressing much better, has been medically cleared and was anxious to return home. DCP will cont. to follow and assist with any further emerging needs. Discharge Planning/Care Management CM Discharge Assessment Start: 02/27/24 12:39 Freq: Status: Active Protocol: Document 02/27/24 12:39 DPL (Rec: 02/27/24 12:41 DPL [id number]) Discharge Planning Assessment Assigned Second Operator JOCELYNE Dean Advance Directives? No: full code History Provided By Patient,Medical Record Prior Living Arrangements House Household Members significant other Type of transporation used prior to Relies on Others admit Independent with ADL's Yes Is patient alert and oriented? Yes Caregiver for Another No Comment No identified home d/c needs during this admission. Barriers to Discharge No Discharge Plan Home Transportation Arrangement Partner Referrals Initiated None needed Review Status In Process Please Provide Date Initial DC 02/27/24 Assessment Was Performed
--- NOTE | 2024-02-27 13:08 | PC.NURSE ---
Patient is A&OX4, VSS, afebrile on RA. She does have some expiratory wheezes and cough. She is independent to the bathroom. MD at bedside evaluating patient clears her for discharge home on antibiotic and steroid. She verbalizes understanding of medication as well as to return to the ED with CP, fever /activity intolerance. She is escorted by [facility] with ANALYTICAL CHEMISTRY TEACHER and all of her belongings to private vehicle with her boyfriend for discharge home today after lunch at 1240 pm.
== END 2024-02-27 12:40 | disposition home or self-care (01) ==
LOC: ED 10:48 → AC 12:22
PROVIDERS: Admitting Provider Hospitalist; Emergency Provider Emergency Medicine; Visit Provider Hospitalist
DX: R10.9 Unspecified abdominal pain (principal); I11.0 Hypertensive heart disease with heart failure; I50.43 Acute on chronic combined systolic (congestive) and diastolic (congestive) heart failure; J44.9 Chronic obstructive pulmonary disease, unspecified; E11.65 Type 2 diabetes mellitus with hyperglycemia; F15.10 Other stimulant abuse, uncomplicated; F17.210 Nicotine dependence, cigarettes, uncomplicated; Z91.148 Patient's other noncompliance with medication regimen for other reason; Z79.4 Long term (current) use of insulin
CPT/HCPCS: 36415; 71045; 74176; 80048; 80053; 80305; 81003; 82962; 83036; 83690; 83880; 84484; 85025; 93005; 93306; 94640; 96365; 96372; 96375; 96376; 99285; G0378; J1644; J1815; J1885; J1940; J2270; J2405; J2919; J3475